=== PATIENT | male | born 1945 | race Caucasian/White ===

== ENCOUNTER → 2016-10-18 | Outpatient (CLI) | payer OTHER ==
[~2016-10-18] MED LIST: AMLO-114 PO; ASPEC325 PO; GLC/500 PO; HYDR-713 PO; LOSA1TAB PO; LPT/40 PO; METO25TA56 PO; PRLSR20 PO; SPIR25TA PO
[2016-10-18 13:42] LABS: RATIO 47.8 mcg/mg (0-30.0)
[2016-10-18 13:45] LABS: ALT/SGPT 62 U/L (12-78); AST/SGOT 38 U/L (15-37); BLOOD UREA NITROGEN 12 mg/dl (7-18); BUN/CREATININE RATIO 12.8 (10-20); CALCIUM 9.3 mg/dl (8.5-10.1); CARBON DIOXIDE 27 mmol/L (21-32); CHLORIDE 102 mmol/L (98-107); CREATININE 0.91 mg/dl (0.60-1.40); GLUCOSE 204 mg/dl (70-99); POTASSIUM 4.3 mmol/L (3.5-5.1); SODIUM 136 mmol/L (136-145)
[2016-10-18 13:47] LABS: ALB/GLOB RATIO 0.9 (0.9-2); ALKALINE PHOSPHATASE 92 U/L (45-117); CHOLESTEROL 123 mg/dl (0-200); CHOLESTEROL/HDL RATIO 2.7; HDL CHOLESTEROL 46 mg/dl; LDL CHOLESTEROL CALCULATED 35 mg/dl; TRIGLYCERIDES 211 mg/dl (0-150); VERY LOW DENSITY LIPOPROT CALC 42 mg/dl
[2016-10-18 13:56] LABS: ESTIMATED AVERAGE GLUCOSE 220 mg/dl; HA1C FLAG Normal (Normal)
== END | disposition home or self-care (01) ==
LOC: C.LABBFT 07:57
PROVIDERS: ATTEND Nurse Practitioner
DX: E11.9 Type 2 diabetes mellitus without complications (principal); I25.10 Atherosclerotic heart disease of native coronary artery without angina pectoris

== ENCOUNTER → 2016-11-14 | Outpatient (CLI) | payer OTHER ==
--- NOTE | 2016-11-15 06:09 | PAP/PSG TECHNICIAN REPORT ---
[facility] Retail Buyer Polysomnogram Report Study name: None Report date: 11/15/2016 Study date: 11/14/2016 Referring Physician: Jorje Chou M.D. Name: WATSON IVANNA Dio Interpreting Physician: Jorje Chou M.D. Date of : 1945 Retail Buyer: Roro Saeed RPSGT. Sex: Male Age: 71 StudyType: PSG Weight: 256 lbs Height: 71 years, Height 5' 8" BMI: 38.92 Medications: Aspirin 81 mg, Metoprolol 25 mg, Triamcinolone 0.5%, Atorvastatin Calcium 40 mg, Omeprazole 20 mg, Amlodipine 10 mg, Losartan 25 mg, Spironolactone 25 mg, Metformin 1000 mg, Tresiba Patient History 71 yr. old male here for a diagnostic sleep study. Patient complains of being restless and sleeping for three hours and then does a lot of tossing and turning. 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 Patients [place] Sleepiness Scale Score is 11/24. Parameters Monitored NPSG: E1-M2, E2-M1, Fp1-M2, Fp2-M1, F3-M2, F4-M2, F4-M1, C3-M2, C4-M2, C4-M1, O1-M2, O2-M2, O2-M1, T3-M2, T4-M1, P3-M2, P4-M1, CHIN1, CHIN2, HR, EKG, Legs, PFLOW, SNOR, FLOW, CFLOW, Tidal Volume, THOR, ABDO, SpO2, PLTH, CPRESS, ETCO2 Wave, ETCO2, pH Sleep Architecture Sleep Stages Time at Lights Off 8:29:26 PM STAGES Time (min.) TST (%) Time at Lights On 5:36:26 AM Wake 120.0 -- Total Recording Time (TRT) 547.00 min. N1 63.5 15 Total Sleep Period (TSP) 514.0 min. N2 238.5 56 Total Sleep Time (TST) 427.0min. N3 73.5 17 Awake Time 120.0 min. REM 51.5 12 Wake after Sleep Onset 90.0 min. Sleep Efficiency (SE) 78 % Sleep Onset Latency (ERICA) 30.0 min. Number of Stage 1 Shifts None Awakenings 34 Stage Changes 148 Number of REM periods 6 REM 51.5 12 REM Latency 139.5 min. NREM 375.5 88 Body Position Analysis Supine Right Left Side Prone Vertical Total Sleep Time (min.) 76.2 359.1 30.1 389.19 0.0 0.0 Total Sleep Time (%) 9% 84% 7% 91 0% N/A% Total Sleep Time REM (min.) 1.9 49.6 0.0 None 0.0 0.0 Total Sleep Time NREM (min.) 35.9 309.5 30.1 None 0.0 0.0 Intermittent Wake (min.) 38.4 52.5 29.2 None 0.0 0.0 Total Sleep Period (%) 10% None None None None None Arousals Myoclonus (PLM) * Events Count Index Events Count Index Spontaneous 6 1 Events Awake (PLMW) 123 61.5 Respiratory 16 3.2 Events Asleep w/ Arousal (PLMA) 12 1.7 PLM 12 2 Events Asleep w/o Arousal (PLMS) 219 30.8 Snoring 19 3 Total Asleep 231 32.5 Total 53 7 Total 354 39 Respiratory Analysis * CA OA MA CH H RERA Total Count 0 48 2 0 168 0 218 Index 0.0 6.7 0.3 0 23.6 0 30.6 Mean Duration 0.0 17.9 19.7 0.00 23.4 0.0 22.2 Longest Duration 0.0 28.2 24.4 0.00 24.4 0.0 87.6 Respiratory Event Summary Total Supine ~Supine Right Left Prone REM NREM Apneas Count 50 48 2 0 2 N/A 0 50 Index 7.0 76 0 0.0 4.0 N/A 0 8 Hypopneas (4% Desat) Count 168 8 160 137 23 N/A 27 141 Index 23.6 12.7 25 22.9 45.9 N/A 31.5 22.5 Apneas & All Hypopneas Count 218 56 162 137 25 N/A 27 191 Index 30.6 89 25 23 50 N/A 31.5 30.5 Respiratory Events (Reclamation Kettle Tender+All Hyp+RERA) Count 218 56 162 137 25 N/A 27 191 Index 30.6 89 25 22.9 49.9 N/A 31.5 30.5 Respiratory Related Arousal Count 16 56 10 8 2 N/A 0 23 Index 3.2 21 2 1 4 N/A 0 4 Snoring Analysis Supine Right Left Prone REM NREM Total Snore duration 39.8 min Snores count 137 1,861 121 N/A 256 1,863 2,119 Snore mean duration 1.1 Sec Snores index 217 311 241 N/A 298.3 297.7 297.8 TST with snoring (%) 9.3% Desaturation Event Summary: Minimum %SpO2 Event Count Mean/Min/Max Duration(sec.) Desaturation Index % Time In Bed > 90 254 30.6 / 7.5 / 60.0 54.4 51.6 86 - 90 47 28.1 / 5.5 / 58.8 11.4 45.5 81 - 85 3 23.1 / 17.3 / 26.5 11.5 2.9 76 - 80 0 N/A 0.0 0.0 71 - 75 0 N/A 0.0 0.0 66 - 70 0 N/A 0.0 0.0 61 - 65 0 N/A 0.0 0.0 56 - 60 0 N/A 0.0 0.0 51 - 55 0 N/A 0.0 0.0 < 50 0 N/A 0.0 0.0 Total REM NREM Awake <50% 0.0 min. 0.0 min. 0.0 min. 0.0 min. 51 - 60% 0.0 min. 0.0 min. 0.0 min. 0.0 min. 61 - 70% 0.0 min. 0.0 min. 0.0 min. 0.0 min. 71 - 80% 0.2 min. 0.2 min. 0.0 min. 0.0 min. 81 - 90% 262.4 min. 29.4 min. 204.4 min. 28.6 min. 91 - 100% 280.0 min. 22.0 min. 171.1 min. 87.0 min. Average 91 89 90 92 Minimum SpO2 80 80 81 82 Desaturation Event Index 29.2 18.6 31.5 29.5 # Desat. Events below 89% 138 8 106 24 Time(%) with Saturation below 89% 16.7 4.2 10.9 1.5 Time(min.) with Saturation below 89% 90.7 23.0 59.3 8.4 Time (mins) REM (mins) NREM (mins) % of TST SpO2 Below 90% 197 14 N183 34.6 SpO2 Below 88% 61 0 0 9 Heart Rate Analysis Min (bpm) Max (bpm) Average (bpm) Awake 67 113 77 NREM 67 94 78 REM 67 91 79 Overall 67 94 78 Supplemental O2 Values Minimum O2 level: None Value Start Time End Time Retail Buyer Comments Mr. Corona slept in the right, left, and supine positions. Cardiac arrhythmia noted. Occasional PLMs noted. No bruxism noted. Snoring was noted and scored as a 2 on a scale of 0 through 5. (0=no snoring, 5=snoring loud enough to be heard through a closed door or down the [address]) Mr. Corona awoke to use the restroom once during the night. Mr. Corona stated, I slept better than I do at home. The final report will be interpreted and signed by a sleep physician. The completed physician report will then be placed in the patient medical record. Therapy (cm H2O) 0 TIB (min.) 547.0 TST (min.) 427.0 Sleep Onset (min.) 30.0 REM Onset From Sleep (min.) 139.5 Sleep Efficiency % 78 Wakefulness (%) 22 Wakefulness (min.) 120.0 NREM 1 (%) 15 NREM 1 (min.) 63.5 NREM 2 (%) 56 NREM 2 (min.) 238.5 NREM 3 (%) 17 NREM 3 (min.) 73.5 REM (%) 12 REM (min.) 51.5 # Arousals 53 Arousal Index 7 # Snore 2,119 Snore Index 297.8 AHI 30.6 AHI Supine 89 AHI Non-Supine 25 NREM AHI 30.5 REM AHI 31.5 RDI 30.6 # Obstructive Apnea 48 # Central Apnea 0 # Mixed Apnea 2 # Hypopneas 168 RERAs 0 Total Respiratory Events 234 Time Below SpO2 89% (min.) 82.3 Mean NREM SpO2 (%) 90 Mean REM SpO2 (%) 89 Mean Sleep SpO2 (%) 90 Min NREM SpO2 (%) 81 Min REM SpO2 (%) 80 Position Supine (min.) 76.2 Position Non-supine (min.) 389.2 LM Index Sleep 32.5 LM Index NREM 34.2 LM Index REM 19.8 Mean Heart Rate (bpm) 78 Min Heart Rate (bpm) 67
--- NOTE | 2016-11-16 10:34 | POLYSOMNOGRAPH REPORT ---
CLINICAL DATA: A 71-year-old male with BMI of 38.92, referred by Dr. Wynne and myself for a sleep study. He has restless sleep, sleeping for 3 hours, then awakening and tossing and turning. His [place] Sleepiness score is elevated at 11/24. SLEEP ARCHITECTURE: Total sleep period was 514 minutes. Total sleep time was 427 minutes divided between 375.5 minutes of non-REM sleep and 51.5 minutes of REM sleep. Sleep onset latency was delayed at 30 minutes. REM latency was slightly delayed at 139.5 minutes. Sleep efficiency was reduced at 78%. Wake after sleep onset was 90 minutes. Sleep consisted of stage N1 15%, stage N2 56%, stage N3 17% and REM 12%. AROUSAL DATA: 53 arousals were recorded for an index of 7 per hour. PERIODIC LIMB MOVEMENT DATA: 231 limb movements during sleep were noted for an index of 32.5 per hour with arousal index of 1.7 per hour. RESPIRATORY DATA: Severe sleep apnea was documented. The AHI was 30.6. There were 48 obstructive and 2 mixed apneic episodes. The longest duration of apnea was 28.2 seconds. There were 168 hypopneic episodes. The mean duration of hypopnea was 22.4 seconds. OXIMETRY DATA: Nocturnal hypoxemia was seen. Oxygen jessica was 80% during REM. Mean saturation was 91%. Time below 88% was 61 minutes. ELECTROCARDIOGRAM: Heart rates ranged from 67-94 beats per minute. Occasional PACs were noted. ELECTRO MECHANICAL ENGINEER'S COMMENTS: The patient slept in the right, left and supine position. No bruxism was noted. Snoring was mild, rated 2 on a scale of 1-5. IMPRESSION: Severe sleep apnea/hypopnea with nocturnal hypoxemia. RECOMMENDATIONS: The patient may benefit from a repeat sleep study with CPAP or use of auto-CPAP. Clinical correlation is needed. [facility] MED[facility] CENTEREdwige
== END | disposition home or self-care (01) ==
LOC: C.NEUR 20:00
PROVIDERS: ATTEND Internal Medicine Endocrinology, Diabetes & Metabolism
DX: G47.30 Sleep apnea, unspecified (principal); I25.10 Atherosclerotic heart disease of native coronary artery without angina pectoris

== ENCOUNTER → 2016-12-12 | Outpatient (CLI) | payer OTHER ==
--- NOTE | 2016-12-13 06:28 | PAP/PSG TECHNICIAN REPORT ---
[facility] Building Wrecker Polysomnogram Report Study name: None Report date: 12/13/2016 Study date: 12/12/2016 Referring Physician: Jorje Chou M.D. Name: WATSON IVANNA Dio Interpreting Physician: Jorje Chou M.D. Date of : 1945 Building Wrecker: Celeste Guajardo RPSGT. Sex: Male Age: 71 Study Type: PSG PAP Weight: 256 lbs Height: 71 years, Height 5' 8" BMI: 38.92 Medications: Aspirin 81 mg, Metoprolol 25 mg, Triamcinolone 0.5%, Atorvastatin Calcium 40 mg, Omeprazole 20 mg, Amlodipine 10 mg, Losartan 25 mg, Spironolactone 25 mg, Metformin 1000 mg, Tresiba Patient History 71 yr-old male here for a new CPAP treatment study. He was found to be positive for JULIOCESAR with and AHI of 30.6. He chose a Mirage FX Soft edge nasal mask size standard from [email or web address]. The test was started on room air and 4 CMH2O. ETCO2 testing was not utilized during this study. Room 1 Parameters Monitored NPSG: E1-M2, E2-M1, Fp1-M2, Fp2-M1, F3-M2, F4-M2, F4-M1, C3-M2, C4-M2, C4-M1, O1-M2, O2-M2, O2-M1, T3-M2, T4-M1, P3-M2, P4-M1, CHIN1, CHIN2, HR, EKG, Legs, PFLOW, SNOR, FLOW, CFLOW, Tidal Volume, THOR, ABDO, SpO2, PLTH, CPRESS, ETCO2 Wave, ETCO2, pH Sleep Architecture Sleep Stages Time at Lights Off 10:01:34 PM STAGES Time (min.) TST (%) Time at Lights On 5:29:04 AM Wake 125.5 -- Total Recording Time (TRT) 447.50 min. N1 24.5 8 Total Sleep Period (TSP) 408.0 min. N2 232.0 72 Total Sleep Time (TST) 322.0min. N3 8.5 3 Awake Time 125.5 min. REM 57.0 18 Wake after Sleep Onset 86.0 min. Sleep Efficiency (SE) 72 % Sleep Onset Latency (ERICA) 39.5 min. Number of Stage 1 Shifts None Awakenings 17 Stage Changes 71 Number of REM periods 2 REM 57.0 18 REM Latency 153.5 min. NREM 265.0 82 Body Position Analysis Supine Right Left Side Prone Vertical Total Sleep Time (min.) 86.0 256.9 61.5 318.36 0.0 0.0 Total Sleep Time (%) 1% 80% 19% 99 0% N/A% Total Sleep Time REM (min.) 0.0 40.5 16.5 None 0.0 0.0 Total Sleep Time NREM (min.) 3.6 216.4 45.0 None 0.0 0.0 Intermittent Wake (min.) 82.3 37.5 5.6 None 0.0 0.0 Total Sleep Period (%) 12% None None None None None Arousals Myoclonus (PLM) * Events Count Index Events Count Index Spontaneous 21 4 Events Awake (PLMW) 71 33.9 Respiratory 2 0.2 Events Asleep w/ Arousal (PLMA) 5 0.9 PLM 5 1 Events Asleep w/o Arousal (PLMS) 110 20.5 Snoring 5 1 Total Asleep 115 21.4 Total 33 6 Total 186 25 Respiratory Analysis * CA OA MA CH H RERA Total Count 1 0 0 0 32 0 33 Index 0.2 0.0 0.0 0 6.0 0 6.1 Mean Duration 10.7 0.0 0.0 0.00 18.1 0.0 17.9 Longest Duration 10.7 0.0 0.0 0.00 0.0 0.0 31.0 Respiratory Event Summary Total Supine ~Supine Right Left Prone REM NREM Apneas Count 1 1 0 0 0 N/A 0 1 Index 0.2 16 0 0.0 0.0 N/A 0 0 Hypopneas (4% Desat) Count 32 2 30 19 11 N/A 10 22 Index 6.0 33.0 6 4.4 10.7 N/A 10.5 5.0 Apneas & All Hypopneas Count 33 3 30 19 11 N/A 10 23 Index 6.1 49 6 4 11 N/A 10.5 5.2 Respiratory Events (Pilot Plant Supervisor+All Hyp+RERA) Count 33 3 30 19 11 N/A 10 23 Index 6.1 49 6 4.4 10.7 N/A 10.5 5.2 Respiratory Related Arousal Count 2 3 1 1 0 N/A 0 1 Index 0.2 0 0 0 0 N/A 0 0 Snoring Analysis Supine Right Left Prone REM NREM Total Snore duration 3.7 min Snores count 16 73 50 N/A 38 101 139 Snore mean duration 1.6 Sec Snores index 264 17 49 N/A 40.0 22.9 25.9 TST with snoring (%) 1.1% Desaturation Event Summary: Minimum %SpO2 Event Count Mean/Min/Max Duration(sec.) Desaturation Index % Time In Bed > 90 133 25.9 / 6.8 / 60.0 56.3 32.1 86 - 90 52 29.1 / 6.8 / 60.0 10.7 65.8 81 - 85 2 17.9 / 14.8 / 21.0 13.1 2.1 76 - 80 0 N/A 0.0 0.0 71 - 75 0 N/A 0.0 0.0 66 - 70 0 N/A 0.0 0.0 61 - 65 0 N/A 0.0 0.0 56 - 60 0 N/A 0.0 0.0 51 - 55 0 N/A 0.0 0.0 < 50 0 N/A 0.0 0.0 Total REM NREM Awake <50% 0.0 min. 0.0 min. 0.0 min. 0.0 min. 51 - 60% 0.0 min. 0.0 min. 0.0 min. 0.0 min. 61 - 70% 0.0 min. 0.0 min. 0.0 min. 0.0 min. 71 - 80% 0.0 min. 0.0 min. 0.0 min. 0.0 min. 81 - 90% 299.8 min. 47.3 min. 216.7 min. 35.8 min. 91 - 100% 141.8 min. 9.7 min. 48.3 min. 83.8 min. Average 90 88 89 91 Minimum SpO2 81 81 83 81 Desaturation Event Index 19.7 32.6 8.4 38.7 # Desat. Events below 89% 110 30 31 49 Time(%) with Saturation below 89% 27.5 7.0 17.7 2.9 Time(min.) with Saturation below 89% 121.6 30.8 78.1 12.7 Time (mins) REM (mins) NREM (mins) % of TST SpO2 Below 90% 68 31 N37 57.4 SpO2 Below 88% 31 0 0 16 Heart Rate Analysis Min (bpm) Max (bpm) Average (bpm) Awake 46 95 79 NREM 63 96 79 REM 66 89 78 Overall 63 96 79 Supplemental O2 Values Minimum O2 level: None Value Start Time End Time Building Wrecker Comments Mr. Corona slept in the right, left, and supine positions. Cardiac arrhythmias were noted (please refer to the printouts). PLMs were noted. No bruxism noted. CPAP was initiated at +4 CMH2O and up-titrated to a level of +9 CMH2O, Cflex 2. A Mirage FX Soft edge nasal mask size standard from [email or web address] was used during titration. He awoke to use the restroom one time during the night. Mr. Corona stated that he slept somewhat poorly. The final report will be interpreted and signed by a sleep physician. The completed physician report will then be placed in the patient medical record. Therapy Event: Therapy (cm H20) 4 6 7 9 Total Time at Pressure (min.) 135.8 67.7 183.6 60.4 TST at Pressure (min.) 87.3 60.2 140.6 33.9 # Periods 1 1 1 1 Sleep Onset (min.) 39.5 0.0 0.0 0.0 REM Onset (min.) N/A 57.2 0.0 0.0 Sleep Efficiency % 64 88 76 56 Wakefulness (%) 35.7 11.1 23.4 43.9 Wakefulness (min.) 48.5 7.5 43.0 26.5 NREM 1 (%) 4.8 4.4 4.4 11.6 NREM 1 (min.) 6.5 3.0 8.0 7.0 NREM 2 (%) 53.6 69.0 48.2 39.7 NREM 2 (min.) 72.8 46.7 88.5 24.0 NREM 3 (%) 5.9 0.0 0.3 0.0 NREM 3 (min.) 8.0 0.0 0.5 0.0 REM (%) 0.0 15.5 23.7 4.8 REM (min.) 0.0 10.5 43.6 2.9 # Arousals 6 3 15 9 Arousal Index 4.1 3.0 6.4 15.9 # Snore 23 14 77 25 Snore Index 15.8 13.9 32.9 44.2 AHI 6.2 6.0 5.5 8.8 AHI Supine N/A N/A 0.0 51.4 AHI Non-Supine 6.2 6.0 5.6 3.9 NREM AHI 6.2 4.8 3.7 7.7 REM AHI N/A 11.4 9.6 20.7 RDI 6.2 6.0 5.5 8.8 # Obstructive 0 0 0 0 # Central Ap 0 0 0 1 # Mixed 0 0 0 0 # Hypopneas 9 6 13 4 RERAS 0 0 0 0 Total Respiratory Events 9 6 13 5 Time Below SpO2 89.00% (min.) 41.4 27.3 38.0 2.2 Mean NREM SpO2 (%) 89 89 90 91 Mean REM SpO2 (%) N/A 87 88 89 Mean Sleep SpO2 (%) 89 88 89 90 Min NREM SpO2 (%) 85 86 84 83 Min REM SpO2 (%) N/A 81 81 84 Position Supine (min.) 0.0 0.0 0.1 3.5 Position Non-supine (min.) 87.3 60.2 140.4 30.4 LM Index Sleep 4.8 57.8 18.4 12.4 LM Index NREM 4.8 67.6 12.4 5.8 LM Index REM N/A 11.4 31.7 82.7 Mean Heart Rate (bpm) 81 78 79 77 Min Heart Rate (bpm) 74 63 66 70
--- NOTE | 2016-12-14 15:10 | POLYSOMNOGRAPH REPORT ---
CLINICAL DATA: A 71-year-old male with BMI of 38.9 referred by myself and Dr. Rondon for a CPAP study. He recently had a sleep study which showed severe sleep apnea with an AHI of 30.6. SLEEP ARCHITECTURE: Total sleep period was 408 minutes. Total sleep time was 322 minutes divided between 265 minutes of non-REM sleep and 57 minutes of REM sleep. Sleep onset latency was delayed at 39.5 minutes. REM latency was slightly delayed at 152.5 minutes. Sleep efficiency was reduced at 72%. Wake after sleep onset was 86 minutes. Sleep consisted of stage N1 8%, stage N2 72%, stage N3 3%, and REM 18%. AROUSAL DATA: 33 arousals were recorded for an index of 6 per hour. PERIODIC LIMB MOVEMENTS DATA: 115 limb movements during sleep were noted for an index of 12.4 per hour with arousal index of 0.9 per hour. RESPIRATORY DATA: The AHI was 6.1. There was 1 central apneic episode, 10.7 seconds in duration. There were 32 hypopneic episodes with the mean duration of 18.1 seconds. OXIMETRY DATA: Mild nocturnal hypoxemia was seen. Oxygen jessica was 81% during REM. The mean saturation was 90%. Time below 88% was 31 minutes. EKG: Heart rates ranged from 63-96 beats per minute. PACs were noted. SHRIMPING BOAT CAPTAIN'S COMMENTS AND TREATMENT SUMMARY: The patient slept in the right, left, and supine positions. He used a Mirage FX soft edge nasal mask size standard. He was titrated up to 9 cm of water pressure. At this final pressure setting, he slept for 34 minutes with an AHI of 8. IMPRESSION: Severe sleep apnea corrected with CPAP 9 cm of water pressure, C-Flex setting of 2 with a residual apnea-hypopnea index of 8 and correction of nocturnal hypoxemia. RECOMMENDATIONS: The patient should be started on the above noted treatment regimen and seen back in followup within 90 days to document efficacy and compliance. BERNIE
== END | disposition home or self-care (01) ==
LOC: C.NEUR 20:00
PROVIDERS: ATTEND Physician Assistant Medical
DX: G47.33 Obstructive sleep apnea (adult) (pediatric) (principal); E66.9 Obesity, unspecified; R13.10 Dysphagia, unspecified; E11.65 Type 2 diabetes mellitus with hyperglycemia; Z79.4 Long term (current) use of insulin

== ENCOUNTER → 2017-04-18 | Outpatient (CLI) | payer OTHER ==
[2017-04-18 13:15] LABS: HEMOGLOBIN A1C 7.2 % (4.5-5.6)
== END | disposition home or self-care (01) ==
LOC: C.LABBFT 07:05
PROVIDERS: ATTEND Internal Medicine Endocrinology, Diabetes & Metabolism
DX: E11.65 Type 2 diabetes mellitus with hyperglycemia (principal); Z79.4 Long term (current) use of insulin

== ENCOUNTER 2022-10-23 18:24 | Inpatient (IN) ==
--- NOTE | 2022-10-23 19:12 | Emergency Department Note ---
History of Present Illness General Chief complaint: Fall Stated complaint: FALL, NAUSEA, BUTTOCKS PAIN Time Seen by Provider: 10/23/22 18:51 History of Present Illness Provider complaint: Fall abdominal pain difficulty breathing Onset (ago): day(s) 2 Maximum Pain Intensity: 9 67-year-old male presents emergency department with friend for fall. Patient's friend reports that the patient fell on Sunday and was unable to get up. She states the patient is been more confused. She states the patient has not been eating. Patient reports abdominal pain. Mild difficulty breathing. No chest pain. Friend states that the patient is supposed to have surgery at [facility] for "fluid on his brain". Home Medications Medication Instructions Recorded Confirmed Type cholecalciferol (vitamin D3) 125 125 mcg PO DAILY 07/29/19 10/23/22 History mcg (5,000 unit) capsule OneTouch Ultra Blue Test Strip #200 ea 07/26/20 10/23/22 Rx (blood sugar diagnostic) omeprazole 20 mg capsule,delayed 20 mg PO DAILY #30 caps 04/03/22 10/23/22 Rx release mecobalamin (vitamin B12) 1,000 1,000 mcg PO DAILY 05/01/22 10/23/22 History mcg chewable tablet amlodipine 10 mg tablet 10 mg PO DAILY #90 tabs 06/26/22 10/23/22 Rx aspirin 81 mg tablet,delayed 162 mg PO QAM #180 tabs 06/26/22 10/23/22 Rx release atorvastatin 80 mg tablet 80 mg PO QPM #90 tabs 06/26/22 10/23/22 Rx dulaglutide 3 mg/0.5 mL 3 mg (0.5 mL) subcut Q7D #2 mL 06/26/22 10/23/22 Rx subcutaneous pen injector losartan 25 mg tablet 12.5 mg PO DAILY #90 tabs 06/26/22 10/23/22 Rx metformin 1,000 mg tablet 1,000 mg PO BID #180 tabs 06/26/22 10/23/22 Rx metoprolol tartrate 25 mg tablet 25 mg PO BID #180 tabs 06/26/22 10/23/22 Rx pen needle, diabetic 32 gauge x #90 ea 06/26/22 10/23/22 Rx 5/32" (BD Ultra-Fine Aimee Pen Needle) spironolactone 25 mg tablet 25 mg PO DAILY #90 tabs 06/26/22 10/23/22 Rx solifenacin 10 mg tablet (Vesicare) 10 mg PO DAILY #30 tabs 06/30/22 10/23/22 Rx lorazepam 0.5 mg tablet 0.5 mg PO .COMPLEX #2 tabs 07/04/22 10/23/22 Rx insulin glargine U-300 conc 300 30 unit (0.1 mL) subcut HS #12 mL 08/30/22 10/23/22 Rx unit/mL (3 mL) subcutaneous pen (Toujeo Max U-300 SoloStar) Allergies Allergy/AdvReac Type Severity Reaction Status Date / Time morphine AdvReac Unknown nasty Verified 06/09/22 10:43 Past Med/Surg History Medical History (Updated 10/24/22 @ 00:59 by Valentin Bailey MD) History of pancreatitis Hx of carpal tunnel syndrome Morbid obesity Nephrolithiasis T2DM (type 2 diabetes mellitus) Surgical History H/O lithotripsy b/l History of laparoscopic cholecystectomy [place] [facility] [place] History Mother Hypertension Father Hypertension Cardiac disorder Sudden Sister Cancer Social History Smoking Status: Former smoker Age Started Using Tobacco: 17; Age Quit Using Tobacco: 54; packs per day: 1; Cigarettes Per Day: 1; Second Hand Exposure: No; Do You Dip or Chew Tobacco: No; Hx Alcohol Use: No Hx Substance Use: No marital status: current occupational status: 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 Feels Safe at Home: Yes Diet: regular caffeine: Yes Seatbelt Use: sometimes Sunscreen Use: No Assistive Devices: Denture - Upper and Denture - Lower Physical Exam Vital Signs Vital Signs - 24 hr 10/23/22 18:38 10/23/22 19:30 10/23/22 20:30 Temperature 36.6 C Temperature Source Temporal Artery Scan Pulse Rate 94 H 88 90 Pulse Rate from SpO2 Sensor 88 90 Respiratory Rate 20 24 20 Respiratory Effort / Characteristics Non-Labored Respiratory Depth Normal Blood Pressure 146/88 H 136/80 147/81 H Blood Pressure Mean 107 98 103 Pulse Oximetry 88 L 92 94 Oxygen Delivery Method Room Air Nasal Cannula Nasal Cannula Oxygen Flow Rate 1 1 Sepsis Recent Fever Within 48 Hours No Sepsis New/Unexplained Change in Mental Status No Sepsis Action Taken by Nursing No Action Required 10/23/22 18:47 10/23/22 21:01 10/23/22 21:30 Temperature Temperature Source Pulse Rate 88 92 H 89 Pulse Rate from SpO2 Sensor 91 H 89 Respiratory Rate 14 17 Respiratory Effort / Characteristics Respiratory Depth Blood Pressure 147/81 H 135/76 Blood Pressure Mean 103 95 Pulse Oximetry 93 91 Oxygen Delivery Method Room Air Room Air Oxygen Flow Rate Sepsis Recent Fever Within 48 Hours Sepsis New/Unexplained Change in Mental Status Sepsis Action Taken by Nursing Physical Exam HENT: Exam performed. - Head: Normocephalic and atraumatic. - Right Ear: External ear normal. No mastoid erythema - Left Ear: External ear normal. No mastoid erythema - Mouth/Throat: The oropharynx is clear and moist. No trismus in the jaw. No dental abscesses or uvula swelling. No oropharyngeal exudate or tonsillar absces ses. EYES: Conjunctivae and EOM are normal. Pupils are equal, round, and reactive to light. Right eye exhibits no discharge. Left eye exhibits no discharge. No scleral icterus. NECK: Normal range of motion. Neck supple. No JVD present. No spinous process tenderness present. CV: Normal rate, regular rhythm, normal heart sounds and intact distal pulses. There is no peripheral edema. Palpable radial pulses bue. PULM/CHEST: Effort normal and breath sounds normal. No respiratory distress. No stridor. He has no wheezes. He has no rales. - Chest Wall: He exhibits no tenderness. No crepitus bilaterally. ABD: The abdomen is soft and distended. There is no tenderness. There is no rebound, no guarding. MUSC/SKEL: Pelvis stable NEURO: He is alert and oriented to person, place, and time. He has normal strength. No cranial nerve deficit or sensory deficit. Coordination and gait normal. GCS eye subscore is 4. GCS verbal subscore is 5. GCS motor subscore is 6. Cerebellar tests wnl. Course Course 185: The patient was evaluated in room C1. A complete history and physical exam was performed Cardiac monitoring: An order was placed for continuous cardiac monitoring. The monitor shows a rate of 90 with sinus rhythm interpreted by Patient hypoxic on room air. Supplemental oxygen was applied via nasal cannula 1 L which improved the patient's oxygen saturation. 1919: No pneumothorax on chest x-ray viewed by . 0052: Vital signs stable on supplemental oxygen. Imaging shows no acute traumatic injury. Stable hydrocephalus. Labs are unremarkable with exception of a low magnesium. Magnesium repletion started in the emergency department. [facility]. Administered Medications Magnesium Sulfate/Dextrose (Magnesium Sulfate / D5w) 1 gm in 100 mls @ 50 mls/hr IV Q2H [facility] Stop: 10/24/22 05:59 Last Admin: 10/23/22 23:43 Dose: 50 mls/hr Documented By: SUNITHA Discontinued Medications Magnesium Sulfate/Dextrose (Magnesium Sulfate / D5w) 1 gm in 100 mls @ 100 m ls/hr IV Q1H [facility] Stop: 10/23/22 22:40 Last Infusion: 10/23/22 23:03 Dose: 0 mls/hr Documented By: Admin: 10/23/22 21:59 Dose: 100 mls/hr Documented By: Infusion: 10/23/22 21:46 Dose: 100 mls/hr Documented By: Admin: 10/23/22 20:46 Dose: 100 mls/hr Documented By: SUNITHA Ioversol (Optiray 320 100ml) 89 ml IV ONCE ONE Stop: 10/23/22 20:09 Last Admin: 10/23/22 20:08 Dose: 89 ml Documented By: CAMILLA Critical Care Time Critical Care Time: Yes Total Critical Care Time: 67 I have personally spent greater than 67 minutes of critical care time in the direct management of this patient. This includes bedside care, interpretation of diagnostic studies, and testing, discussion with consultants, patient, and family members, and other required patient management activities. This 67 minutes is in excess of all separately billable procedures. Medical Decision Making Medical Records Attestation: I reviewed the patient's medical records. External medical records were obtained from case loader operator Prasanna. According to the neurology note from [facility] the patient has a history of poor balance and wets himself without knowing, this is from May 2022. 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 Laboratory Data Attestation: I reviewed the patient's lab results. 10/23/22 19:25 10/23/22 19:25 Lab Results 10/23/22 10/23/22 10/23/22 Range/Units 19:05 19:25 19:25 WBC 9.54 (4.8-10.8) K/ul RBC 4.05 L (4.70-6.10) M/uL Hgb 12.5 L (14.0-18.0) g/dl POC Hgb (14.0-18.0) g/dl Hct 36.4 L (42.0-52.0) % POC Hct (42-52) % MCV 89.9 (80.0-100.0) fL MCH 30.9 (25.0-34.0) pg MCHC 34.3 (32.0-36.0) g/dL RDW Std Deviation 44.6 (36.4-46.3) fL RDW Coeff of Payton 13.7 (11.5-14.5) % Plt Count 183 (130-400) K/uL MPV 9.5 (9.4-12.4) fL Immature Gran % (Auto) 0.3 % Neut % (Auto) 80.0 % Lymph % (Auto) 12.1 % Gillespie % (Auto) 7.0 % Eos % (Auto) 0.4 % Baso % (Auto) 0.2 % Neut # (Auto) 7.63 H (1.40-6.50) K/uL Lymph # (Auto) 1.15 L (1.20-3.40) K/uL Gillespie # (Auto) 0.67 H (0.11-0.59) K/uL Eos # (Auto) 0.04 (0.00-0.50) K/uL Baso # (Auto) 0.02 (0.00-0.20) K/uL Immature Gran # (Auto) 0.03 (0.01-0.20) K/uL PT 11.6 (9.0-12.0) Seconds INR 1.1 (0.9-1.1) APTT 32.5 H (21.0-31.0) Seconds PTT Ratio 1.2 VBG pH (7.36-7.41) VBG pCO2 (38-50) mmHg VBG pO2 mmHg VBG HCO3 mmol/L VBG O2 Saturation % VBG Base Excess mEq/L POC Sodium (135-144) mmol/L Sodium (136-145) mmol/L POC Potassium (3.3-5.0) mmol/L Potassium (3.5-5.1) mmol/L POC Chloride (101-112) mmol/L Chloride (98-107) mmol/L Carbon Dioxide (21-32) mmol/L POC Total CO2 (24-31) mmol/L Anion Gap (3-11) POC Anion Gap (16-25) mmol/L POC BUN (7-18) mg/dl BUN (6-23) mg/dl Creatinine (0.6-1.4) mg/dl POC Creatinine (0.6-1.3) mg/dl Est Cr Clr Drug Dosing ml/min Est GFR ( Amer) ml/min Est GFR (Non-Af Amer) ml/min BUN/Creatinine Ratio (10-20) Glucose (70-99(Fasting)) mg/dl POC Glucose 105 H (70-99) mg/dl POC Glucose (other) (70-99) mg/dl Calcium (8.6-10.3) mg/dl POC Ioniz Calcium [place] (1.12-1.32) mmol/l Magnesium (1.7-2.4) mg/dl Total Bilirubin (0.2-1.0) mg/dl Direct Bilirubin (0-0.2) mg/dl AST (13-39) U/L ALT (7-52) U/L Alkaline Phosphatase (34-104) U/L Total Creatine Kinase (30-223) U/L Troponin I High Sens (0-20) pg/ml B-Natriuretic Peptide (0-100) pg/ml Total Protein (6.0-8.3) gm/dl Albumin (3.4-5.0) gm/dl Lipase (11-82) U/L Ethyl Alcohol mg/dL (<10.0) mg/dl SARS-CoV-2, RNA, NAAT (NEGATIVE) 10/23/22 10/23/22 10/23/22 Range/Units 19:25 19:25 19:25 WBC (4.8-10.8) K/ul RBC (4.70-6.10) M/uL Hgb (14.0-18.0) g/dl POC Hgb (14.0-18.0) g/dl Hct (42.0-52.0) % POC Hct (42-52) % MCV (80.0-100.0) fL MCH (25.0-34.0) pg MCHC (32.0-36.0) g/dL RDW Std Deviation (36.4-46.3) fL RDW Coeff of Payton (11.5-14.5) % Plt Count (130-400) K/uL MPV (9.4-12.4) fL Immature Gran % (Auto) % Neut % (Auto) % Lymph % (Auto) % Gillespie % (Auto) % Eos % (Auto) % Baso % (Auto) % Neut # (Auto) (1.40-6.50) K/uL Lymph # (Auto) (1.20-3.40) K/uL Gillespie # (Auto) (0.11-0.59) K/uL Eos # (Auto) (0.00-0.50) K/uL Baso # (Auto) (0.00-0.20) K/uL Immature Gran # (Auto) (0.01-0.20) K/uL PT (9.0-12.0) Seconds INR (0.9-1.1) APTT (21.0-31.0) Seconds PTT Ratio VBG pH 7.42 H (7.36-7.41) VBG pCO2 36 L (38-50) mmHg VBG pO2 60 mmHg VBG HCO3 23 mmol/L VBG O2 Saturation 89.2 % VBG Base Excess -0.7 mEq/L POC Sodium (135-144) mmol/L Sodium 136 (136-145) mmol/L POC Potassium (3.3-5.0) mmol/L Potassium 3.7 (3.5-5.1) mmol/L POC Chloride (101-112) mmol/L Chloride 103 (98-107) mmol/L Carbon Dioxide 22 (21-32) mmol/L POC Total CO2 (24-31) mmol/L Anion Gap 11 (3-11) POC Anion Gap (16-25) mmol/L POC BUN (7-18) mg/dl BUN 19 (6-23) mg/dl Creatinine 1.05 (0.6-1.4) mg/dl POC Creatinine (0.6-1.3) mg/dl Est Cr Clr Drug Dosing 73.0 ml/min Est GFR ( Amer) 79.5 ml/min Est GFR (Non-Af Amer) 68.6 ml/min BUN/Creatinine Ratio 18.1 (10-20) Glucose 108 H (70-99(Fasting)) mg/dl POC Glucose (70-99) mg/dl POC Glucose (other) (70-99) mg/dl Calcium 9.5 (8.6-10.3) mg/dl POC Ioniz Calcium [place] (1.12-1.32) mmol/l Magnesium 0.9 L* (1.7-2.4) mg/dl Total Bilirubin 0.8 (0.2-1.0) mg/dl Direct Bilirubin 0.1 (0-0.2) mg/dl AST 14 (13-39) U/L ALT 15 (7-52) U/L Alkaline Phosphatase 94 (34-104) U/L Total Creatine Kinase 99 (30-223) U/L Troponin I High Sens 6.9 (0-20) pg/ml B-Natriuretic Peptide 38 (0-100) pg/ml Total Protein 6.6 (6.0-8.3) gm/dl Albumin 4.2 (3.4-5.0) gm/dl Lipase 16 (11-82) U/L Ethyl Alcohol mg/dL (<10.0) mg/dl SARS-CoV-2, RNA, NAAT (NEGATIVE) 10/23/22 10/23/22 10/23/22 Range/Units 19:25 19:36 19:45 WBC (4.8-10.8) K/ul RBC (4.70-6.10) M/uL Hgb (14.0-18.0) g/dl POC Hgb 12.6 L (14.0-18.0) g/dl Hct (42.0-52.0) % POC Hct 37 L (42-52) % MCV (80.0-100.0) fL MCH (25.0-34.0) pg MCHC (32.0-36.0) g/dL RDW Std Deviation (36.4-46.3) fL RDW Coeff of Payton (11.5-14.5) % Plt Count (130-400) K/uL MPV (9.4-12.4) fL Immature Gran % (Auto) % Neut % (Auto) % Lymph % (Auto) % Gillespie % (Auto) % Eos % (Auto) % Baso % (Auto) % Neut # (Auto) (1.40-6.50) K/uL Lymph # (Auto) (1.20-3.40) K/uL Gillespie # (Auto) (0.11-0.59) K/uL Eos # (Auto) (0.00-0.50) K/uL Baso # (Auto) (0.00-0.20) K/uL Immature Gran # (Auto) (0.01-0.20) K/uL PT (9.0-12.0) Seconds INR (0.9-1.1) APTT (21.0-31.0) Seconds PTT Ratio VBG pH (7.36-7.41) VBG pCO2 (38-50) mmHg VBG pO2 mmHg VBG HCO3 mmol/L VBG O2 Saturation % VBG Base Excess mEq/L POC Sodium 139 (135-144) mmol/L Sodium (136-145) mmol/L POC Potassium 3.7 (3.3-5.0) mmol/L Potassium (3.5-5.1) mmol/L POC Chloride 104 (101-112) mmol/L Chloride (98-107) mmol/L Carbon Dioxide (21-32) mmol/L POC Total CO2 23 L (24-31) mmol/L Anion Gap (3-11) POC Anion Gap 17.0 (16-25) mmol/L POC BUN 17 (7-18) mg/dl BUN (6-23) mg/dl Creatinine (0.6-1.4) mg/dl POC Creatinine 1.1 (0.6-1.3) mg/dl Est Cr Clr Drug Dosing ml/min Est GFR ( Amer) ml/min Est GFR (Non-Af Amer) ml/min BUN/Creatinine Ratio (10-20) Glucose (70-99(Fasting)) mg/dl POC Glucose (70-99) mg/dl POC Glucose (other) 107 H (70-99) mg/dl Calcium (8.6-10.3) mg/dl POC Ioniz Calcium [place] 1.17 (1.12-1.32) mmol/l Magnesium (1.7-2.4) mg/dl Total Bilirubin (0.2-1.0) mg/dl Direct Bilirubin (0-0.2) mg/dl AST (13-39) U/L ALT (7-52) U/L Alkaline Phosphatase (34-104) U/L Total Creatine Kinase Cancelled (30-223) U/L Troponin I High Sens (0-20) pg/ml B-Natriuretic Peptide (0-100) pg/ml Total Protein (6.0-8.3) gm/dl Albumin (3.4-5.0) gm/dl Lipase (11-82) U/L Ethyl Alcohol mg/dL < 10.0 (<10.0) mg/dl SARS-CoV-2, RNA, NAAT (NEGATIVE) 10/23/22 Range/Units 21:15 WBC (4.8-10.8) K/ul RBC (4.70-6.10) M/uL Hgb (14.0-18.0) g/dl POC Hgb (14.0-18.0) g/dl Hct (42.0-52.0) % POC Hct (42-52) % MCV (80.0-100.0) fL MCH (25.0-34.0) pg MCHC (32.0-36.0) g/dL RDW Std Deviation (36.4-46.3) fL RDW Coeff of Payton (11.5-14.5) % Plt Count (130-400) K/uL MPV (9.4-12.4) fL Immature Gran % (Auto) % Neut % (Auto) % Lymph % (Auto) % Gillespie % (Auto) % Eos % (Auto) % Baso % (Auto) % Neut # (Auto) (1.40-6.50) K/uL Lymph # (Auto) (1.20-3.40) K/uL Gillespie # (Auto) (0.11-0.59) K/uL Eos # (Auto) (0.00-0.50) K/uL Baso # (Auto) (0.00-0.20) K/uL Immature Gran # (Auto) (0.01-0.20) K/uL PT (9.0-12.0) Seconds INR (0.9-1.1) APTT (21.0-31.0) Seconds PTT Ratio VBG pH (7.36-7.41) VBG pCO2 (38-50) mmHg VBG pO2 mmHg VBG HCO3 mmol/L VBG O2 Saturation % VBG Base Excess mEq/L POC Sodium (135-144) mmol/L Sodium (136-145) mmol/L POC Potassium (3.3-5.0) mmol/L Potassium (3.5-5.1) mmol/L POC Chloride (101-112) mmol/L Chloride (98-107) mmol/L Carbon Dioxide (21-32) mmol/L POC Total CO2 (24-31) mmol/L Anion Gap (3-11) POC Anion Gap (16-25) mmol/L POC BUN (7-18) mg/dl BUN (6-23) mg/dl Creatinine (0.6-1.4) mg/dl POC Creatinine (0.6-1.3) mg/dl Est Cr Clr Drug Dosing ml/min Est GFR ( Amer) ml/min Est GFR (Non-Af Amer) ml/min BUN/Creatinine Ratio (10-20) Glucose (70-99(Fasting)) mg/dl POC Glucose (70-99) mg/dl POC Glucose (other) (70-99) mg/dl Calcium (8.6-10.3) mg/dl POC Ioniz Calcium [place] (1.12-1.32) mmol/l Magnesium (1.7-2.4) mg/dl Total Bilirubin (0.2-1.0) mg/dl Direct Bilirubin (0-0.2) mg/dl AST (13-39) U/L ALT (7-52) U/L Alkaline Phosphatase (34-104) U/L Total Creatine Kinase (30-223) U/L Troponin I High Sens (0-20) pg/ml B-Natriuretic Peptide (0-100) pg/ml Total Protein (6.0-8.3) gm/dl Albumin (3.4-5.0) gm/dl Lipase (11-82) U/L Ethyl Alcohol mg/dL (<10.0) mg/dl SARS-CoV-2, RNA, NAAT NEGATIVE (NEGATIVE) Imaging Data Attestation: I personally reviewed and interpreted this imaging study as follows: My Impression: No pneumothorax on chest x-ray viewed by me. Radiologist's Impression: Abdomen/Pelvis CT 10/23/22 18:58 Exam(s): CT ABDOMEN + PELVIS With Contrast IV Amt: 89ml EXAM: CT Abdomen and Pelvis With Intravenous Contrast CLINICAL HISTORY: Reason for exam: fall. TECHNIQUE: Axial computed tomography images of the abdomen and pelvis with intravenous contrast. CTDI is 26.54 mGy and DLP is 1573.33 mGy-cm. Automated exposure control was utilized for the study. A dose lowering technique was utilized adhering to the principles of ALARA. CONTRAST: Patient received 89ml of IV contrast COMPARISON: No relevant prior studies available. FINDINGS: Chest findings are reported separately. Gallbladder surgically absent. There is no significant biliary dilatation. Liver, spleen, pancreas, and adrenal glands are unremarkable. Kidneys enhance symmetrically. There is no hydronephrosis. There are small simple parapelvic cysts in the right kidney for which no further follow-up is required. There are simple parapelvic cysts in the left kidney as well as exophytic cortical cysts, the largest measuring 9.8 cm; no further follow-up is required. There are multiple nonobstructing stones in each kidney, largest in the left kidney measuring 6 mm. There is no evidence of renal injury. There is atherosclerosis without aortic aneurysm. There is no vascular injury. There is no adenopathy, free fluid, or free air. Urinary bladder and prostate are unremarkable. Appendix is visualized and appears normal. There is no evidence of small or large bowel obstruction. There is no mucosal thickening. Sigmoid diverticulosis is present, without evidence of acute diverticulitis. Bones are demineralized. There are age-related degenerative changes of the spine. There are no acute osseous findings. IMPRESSION: 1. No acute traumatic findings. 2. Nonobstructing kidney stones. No hydronephrosis. Electronically signed by: Yane Raya M.D. 10/23/22 20:[address] 10/23/22 18:59 Exam(s): CT C SPINE EXAM: CT Cervical Spine Without Intravenous Contrast CLINICAL HISTORY: Reason for exam: fall. TECHNIQUE: Axial computed tomography images of the cervical spine without intravenous contrast. CTDI is 36.67 mGy and DLP is 624.41 mGy-cm. Automated exposure control was utilized for the study. A dose lowering technique was utilized adhering to the principles of ALARA. COMPARISON: No relevant prior studies available. FINDINGS: Vertebral body height and alignment are maintained. There is cervical spine straightening. There is no acute fracture or traumatic subluxation. Bones are demineralized. Anterior ossification the cervical spine raises the possibility of diffuse idiopathic skeletal hyperostosis. Disc heights are relatively maintained for patient age. There is multilevel bilateral facet degeneration. There is lower cervical uncovertebral joint degeneration. There is no significant central spinal canal stenosis. There is mild right foraminal narrowing at C3-C4 and mild right foraminal narrowing at C6-C7. Prevertebral soft tissues appear unremarkable. IMPRESSION: Cervical spine straightening without acute osseous abnormality. Electronically signed by: Yane Raya M.D. 10/23/22 20:30 PM Chest X-Ray 10/23/22 18:59 XR chest 1V portable HISTORY: fall COMPARISON: Chest and abdominal series 05/22/2014. FINDINGS: No pneumothorax. No pleural effusions. There are poststernotomy changes. There are calcifications within the aortic knob. No focal lung consolidations to suggest pneumonia. No evidence for pulmonary edema. Bibasilar linear densities favor subsegmental atelectasis. This is similar to the prior [facility]. IMPRESSION: No significant change compared to the prior study. No acute process. ACT 112: Negative or not required by law. Electronically signed by: Franck Kilpatrick M.D. 10/23/2022 8:[address] 10/23/22 18:59 Exam(s): CT HEAD Without Contrast EXAM: CT Head Without Intravenous Contrast CLINICAL HISTORY: Reason for exam: fall. TECHNIQUE: Axial computed tomography images of the head/brain without intravenous contrast. CTDI is 25.6 mGy and DLP is 486.93 mGy-cm. Automated exposure control was utilized for the study. A dose lowering technique was utilized adhering to the principles of ALARA. COMPARISON: 08/26/18 FINDINGS: Brain: Generalized parenchymal volume loss. Chronic small vessel ischemic changes. Zazueta-white matter differentiation maintained. No acute intracranial hemorrhage, mass-effect, or edema. Ventricles: Similar ventricular enlargement, favored to reflect central greater than cortical cerebral atrophy, but clinical correlation to exclude normal pressure hydrocephalus is recommended. Bones/joints: Unremarkable. No acute fracture. Soft tissues: Unremarkable. Vasculature: Intracranial atherosclerosis. Sinuses: Unremarkable as visualized. No acute sinusitis. Mastoid air cells: Unremarkable as visualized. No mastoid effusion. Orbits: Bilateral lens replacements. IMPRESSION: 1. No acute intracranial process appeared 2. Similar ventricular enlargement, favored to reflect central greater than cortical cerebral atrophy, but clinical correlation to exclude normal pressure hydrocephalus is recommended. Electronically signed by: Yane Raya M.D. 10/23/22 20:28 PM Pelvis X-Ray 10/23/22 18:59 XR pelvis 1-2V routine CLINICAL HISTORY: fall. Pelvic pain. COMPARISON STUDY: None. FINDINGS: No acute fracture or dislocation within the pelvis or hips. The sacrum is intact. Degenerative changes within the hips and bilateral sacroiliac joints. No radiopaque foreign bodies. IMPRESSION: No fracture or dislocation within the pelvis or hips. ACT 112: Negative or not required by law. Electronically signed by: Franck Kilpatrick M.D. 10/23/2022 8:[address] 10/23/22 19:09 Exam(s): CT CHEST With Contrast IV Amt: 89 EXAM: CT Chest With Intravenous Contrast CLINICAL HISTORY: Reason for exam: fall hypoxia. TECHNIQUE: Axial computed tomography images of the chest with intravenous contrast. CTDI is 28.14 mGy and DLP is 951.03 mGy-cm. Automated exposure control was utilized for the study. A dose lowering technique was utilized adhering to the principles of ALARA. CONTRAST: Patient received 89 of IV contrast COMPARISON: No relevant prior studies available. FINDINGS: Bones are demineralized. There is no acute fracture or dislocation. Patient has undergone previous sternotomy and CABG. Coronary arteries are calcified. Heart size is upper limits of normal. There is no pericardial effusion. There is no adenopathy. There is no thoracic aortic aneurysm or dissection. Main pulmonary artery is normal. There is no mediastinal hematoma. There is no airspace consolidation, pulmonary contusion, pulmonary mass, pleural effusion, or pneumothorax. IMPRESSION: No acute traumatic findings. Electronically signed by: Yane Raya M.D. 10/23/22 20:34 PM ECG Data Attestation: I personally reviewed and interpreted this ECG as follows: Additional Comments: Sinus rhythm with rate 91. AR 202 QRS 132 QTc 467. Right bundle branch block present. No ST elevation or ST depression. [facility] Narrative 185: The patient was evaluated in room C1. A complete history and physical exam was performed Cardiac monitoring: An order was placed for continuous cardiac monitoring. The monitor shows a rate of 90 with sinus rhythm interpreted by me Patient hypoxic on room air. Supplemental oxygen was applied via nasal cannula 1 L which improved the patient's oxygen saturation. 1918: No pneumothorax on chest x-ray viewed by me. 005: Vital signs stable on supplemental oxygen. Imaging shows no acute traumatic injury. Stable hydrocephalus. Labs are unremarkable with exception of a low magnesium. Magnesium repletion started in the emergency department. [facility] Impression & Plan Hypomagnesemia, Hypoxia, Normal pressure hydrocephalus Discharge Plan Visit Data Chief Complaint: Fall Stated Complaint: FALL, NAUSEA, BUTTOCKS PAIN ED Provider: Valentin Bailey Discharge Problem: Hypomagnesemia, Hypoxia, Normal pressure hydrocephalus Patient Disposition: Admitted As Inpatient Discharge Instructions Interventions: ED Discharge Assessment Last Done: 10/23/22 23:26
[2022-10-23 19:49] LABS: iSTAT Creatinine 1.1 mg/dl (0.6-1.3); iSTAT Hemoglobin 12.6 g/dl (14.0-18.0); iSTAT Ionized Calcium 1.17 mmol/l (1.12-1.32); iSTAT Potassium 3.7 mmol/L (3.3-5.0)
[2022-10-23 19:52] LABS: Base Excess VBG -0.7 mEq/L; HCO3 VBG 23 mmol/L; Oxygen Saturation VBG 89.2 %; PCO2 VBG 36 mmHg (38-50); PO2 VBG 60 mmHg; pH VBG 7.42 (7.36-7.41)
[2022-10-23 20:04] LABS: Basophils # (auto) 0.02 K/uL (0.00-0.20); Basophils % (auto) 0.2 %; Eosinophils # (auto) 0.04 K/uL (0.00-0.50); Eosinophils % (auto) 0.4 %; Hematocrit (blood only) 36.4 % (42.0-52.0); Hemoglobin 12.5 g/dl (14.0-18.0); Immature Granulocytes # (auto) 0.03 K/uL (0.01-0.20); Immature Granulocytes % (auto) 0.3 %; Lymphocytes # (auto) 1.15 K/uL (1.20-3.40); Lymphocytes % (auto) 12.1 %; Mean Corpuscular Hemoglobin 30.9 pg (25.0-34.0); Mean Corpuscular Hgb Conc 34.3 g/dL (32.0-36.0); Mean Corpuscular Volume 89.9 fL (80.0-100.0); Mean Platelet Volume 9.5 fL (9.4-12.4); Monocytes # (auto) 0.67 K/uL (0.11-0.59); Neutrophils # (auto) 7.63 K/uL (1.40-6.50); Platelet Count 183 K/uL (130-400); RDW Coefficient of Variation 13.7 % (11.5-14.5); RDW Standard Deviation 44.6 fL (36.4-46.3); Red Blood Count 4.05 M/uL (4.70-6.10); White Blood Count 9.54 K/ul (4.8-10.8)
[2022-10-23] MEDS ORDERED: OPTIRAY 320 100ml IV ONE (20:08)
--- NOTE | 2022-10-23 20:10 | XRay Report ---
XR chest 1V portable HISTORY: fall COMPARISON: Chest and abdominal series 05/22/2014. FINDINGS: No pneumothorax. No pleural effusions. There are poststernotomy changes. There are calcific ations within the aortic knob. No focal lung consolidations to suggest pneumonia. No evidence for pul monary edema. Bibasilar linear densities favor subsegmental atelectasis. This is similar to the prior study. IMPRESSION: No significant change compared to the prior study. No acute process. ACT 112: Negative or not required by law. Electronically signed by: Franck Kilpatrick M.D. 10/23/2022 8:09 PM
--- NOTE | 2022-10-23 20:11 | XRay Report ---
XR pelvis 1-2V routine CLINICAL HISTORY: fall. Pelvic pain. COMPARISON STUDY: None. FINDINGS: No acute fracture or dislocation within the pelvis or hips. The sacrum is intact. Degenerat wang changes within the hips and bilateral sacroiliac joints. No radiopaque foreign bodies. IMPRESSION: No fracture or dislocation within the pelvis or hips. ACT 112: Negative or not required by law. Electronically signed by: Franck Kilpatrick M.D. 10/23/2022 8:10 PM
[2022-10-23 20:18] LABS: BUN Creatinine Ratio 18.1 (10-20); Calcium 9.5 mg/dl (8.6-10.3); Est GFR (African American) 79.5 ml/min; Est GFR (Non-African American) 68.6 ml/min; Potassium 3.7 mmol/L (3.5-5.1)
[2022-10-23 20:25] LABS: Albumin Level 4.2 gm/dl (3.4-5.0); Bilirubin Direct 0.1 mg/dl (0-0.2); Bilirubin,Total 0.8 mg/dl (0.2-1.0); Magnesium 0.9 mg/dl (1.7-2.4); Total Protein 6.6 gm/dl (6.0-8.3); Troponin I High Sensitivity 6.9 pg/ml (0-20)
--- NOTE | 2022-10-23 20:29 | CT Scan Report ---
Exam(s): CT HEAD Without Contrast EXAM: CT Head Without Intravenous Contrast CLINICAL HISTORY: Reason for exam: fall. TECHNIQUE: Axial computed tomography images of the head/brain without intravenous contrast. CTDI is 25.6 mGy and DLP is 486.93 mGy-cm. Automated exposure control was utilized for the study. A dose lowering technique was utilized adhering to the principles of ALARA. COMPARISON: 08/26/18 FINDINGS: Brain: Generalized parenchymal volume loss. Chronic small vessel ischemic changes. Zazueta-white matter differentiation maintained. No acute intracranial hemorrhage, mass-effect, or edema. Ventricles: Similar ventricular enlargement, favored to reflect central greater than cortical cerebral atrophy, but clinical correlation to exclude normal pressure hydrocephalus is recommended. Bones/joints: Unremarkable. No acute fracture. Soft tissues: Unremarkable. Vasculature: Intracranial atherosclerosis. Sinuses: Unremarkable as visualized. No acute sinusitis. Mastoid air cells: Unremarkable as visualized. No mastoid effusion. Orbits: Bilateral lens replacements. IMPRESSION: 1. No acute intracranial process appeared 2. Similar ventricular enlargement, favored to reflect central greater than cortical cerebral atrophy, but clinical correlation to exclude normal pressure hydrocephalus is recommended. Electronically signed by: Yane Raya M.D. 10/23/22 20:28 PM
--- NOTE | 2022-10-23 20:31 | CT Scan Report ---
Exam(s): CT C SPINE EXAM: CT Cervical Spine Without Intravenous Contrast CLINICAL HISTORY: Reason for exam: fall. TECHNIQUE: Axial computed tomography images of the cervical spine without intravenous contrast. CTDI is 36.67 mGy and DLP is 624.41 mGy-cm. Automated exposure control was utilized for the study. A dose lowering technique was utilized adhering to the principles of ALARA. COMPARISON: No relevant prior studies available. FINDINGS: Vertebral body height and alignment are maintained. There is cervical spine straightening. There is no acute fracture or traumatic subluxation. Bones are demineralized. Anterior ossification the cervical spine raises the possibility of diffuse idiopathic skeletal hyperostosis. Disc heights are relatively maintained for patient age. There is multilevel bilateral facet degeneration. There is lower cervical uncovertebral joint degeneration. There is no significant central spinal canal stenosis. There is mild right foraminal narrowing at C3-C4 and mild right foraminal narrowing at C6-C7. Prevertebral soft tissues appear unremarkable. IMPRESSION: Cervical spine straightening without acute osseous abnormality. Electronically signed by: Yane Raya M.D. 10/23/22 20:30 PM
--- NOTE | 2022-10-23 20:33 | CT Scan Report ---
Exam(s): CT ABDOMEN + PELVIS With Contrast IV Amt: 89ml EXAM: CT Abdomen and Pelvis With Intravenous Contrast CLINICAL HISTORY: Reason for exam: fall. TECHNIQUE: Axial computed tomography images of the abdomen and pelvis with intravenous contrast. CTDI is 26.54 mGy and DLP is 1573.33 mGy-cm. Automated exposure control was utilized for the study. A dose lowering technique was utilized adhering to the principles of ALARA. CONTRAST: Patient received 89ml of IV contrast COMPARISON: No relevant prior studies available. FINDINGS: Chest findings are reported separately. Gallbladder surgically absent. There is no significant biliary dilatation. Liver, spleen, pancreas, and adrenal glands are unremarkable. Kidneys enhance symmetrically. There is no hydronephrosis. There are small simple parapelvic cysts in the right kidney for which no further follow-up is required. There are simple parapelvic cysts in the left kidney as well as exophytic cortical cysts, the largest measuring 9.8 cm; no further follow-up is required. There are multiple nonobstructing stones in each kidney, largest in the left kidney measuring 6 mm. There is no evidence of renal injury. There is atherosclerosis without aortic aneurysm. There is no vascular injury. There is no adenopathy, free fluid, or free air. Urinary bladder and prostate are unremarkable. Appendix is visualized and appears normal. There is no evidence of small or large bowel obstruction. There is no mucosal thickening. Sigmoid diverticulosis is present, without evidence of acute diverticulitis. Bones are demineralized. There are age-related degenerative changes of the spine. There are no acute osseous findings. IMPRESSION: 1. No acute traumatic findings. 2. Nonobstructing kidney stones. No hydronephrosis. Electronically signed by: Yane Raya M.D. 10/23/22 20:32 PM
--- NOTE | 2022-10-23 20:34 | CT Scan Report ---
Exam(s): CT CHEST With Contrast IV Amt: 89 EXAM: CT Chest With Intravenous Contrast CLINICAL HISTORY: Reason for exam: fall hypoxia. TECHNIQUE: Axial computed tomography images of the chest with intravenous contrast. CTDI is 28.14 mGy and DLP is 951.03 mGy-cm. Automated exposure control was utilized for the study. A dose lowering technique was utilized adhering to the principles of ALARA. CONTRAST: Patient received 89 of IV contrast COMPARISON: No relevant prior studies available. FINDINGS: Bones are demineralized. There is no acute fracture or dislocation. Patient has undergone previous sternotomy and CABG. Coronary arteries are calcified. Heart size is upper limits of normal. There is no pericardial effusion. There is no adenopathy. There is no thoracic aortic aneurysm or dissection. Main pulmonary artery is normal. There is no mediastinal hematoma. There is no airspace consolidation, pulmonary contusion, pulmonary mass, pleural effusion, or pneumothorax. IMPRESSION: No acute traumatic findings. Electronically signed by: Yane Raya M.D. 10/23/22 20:34 PM
[2022-10-23 20:37] LABS: INR 1.1 (0.9-1.1); Partial Thromboplastin Ratio 1.2; Partial Thromboplastin Time 32.5 Seconds (21.0-31.0); Prothrombin Time 11.6 Seconds (9.0-12.0)
[2022-10-23] MEDS: MAGNESIUM SULFATE / D5W 1 GM/100 ML BAG IV SCH ×3 (20:46→23:43)
--- NOTE | 2022-10-23 21:41 | History & Physical Report ---
Date of Service October 23, 2022 Assessment & Plan (1) Hypomagnesemia: Plan: 77yo male with multiple medical comorbidities presenting from home after a fall. No injuries sustained. Patient found to have hypomagnesemia with Mg=0.9. Potassium and calcium WNL. Patient has received 2gm of Magnesium sulfate thus far -Admit to medical with telemetry -Continue magnesium repletion - 3 additional grams ordered -Repeat Mg level in AM (2) Normal pressure hydrocephalus: Plan: Patient with normal pressure hydrocephalus. He follow with Neurosurgery at [facility] and is to have a shunt placed in December or sooner if able. He does endorse increased imbalance and falls as well as urinary incontinence and periods of confusion. CT of the head obtained with ventricular enlargement and some cortical cerebral atrophy which is similar to prior study. No neurological deficits. -Monitor -Followup with Neurosurgery outpatient as directed (3) Uncontrolled type 2 diabetes mellitus with insulin therapy: Plan: Patient is compliant with home medications - Trulicity, glargine U-300 and Metformin. Last HgbA1C 6 on 11/30/21 -Goal blood sugar 110-140 -Glargine 15u BID -ISS -Hold Metformin (4) CAD (coronary artery disease): Plan: Patient with CAD s/[place] CAB[place] [facility] [place] Denies chest pain. Troponin within normal range at 6.9 -Telemetry monitoring -Magnesium repletion -Continue ASA, Atorvastatin, Metoprolol and Losartan (5) Hypertension: Plan: Blood pressure mildly elevated -Continue Amlodipine, Metoprolol, Losartan, Spironolactone -Monitor (6) Gastroesophageal reflux disease due to diaphragmatic hernia: Plan: Chronic. Stable -will hold PPI in setting of hypomagnesemia History of Present Illness Chief Complaint: fall Primary Care Provider: Daniel Rondon MD Simone Corona is a 77yo male with history of DM, CAD s/p CABG, NAFLD presenting after a fall at home. History obtained from patient and at bedside. Patient reports he has been having worsening balance and increased frequency of falls for the last two years. He does have a diagnosis of normal pressure hydrocephalus for which he follows with Neurosurgery at [facility] in [place]. He is scheduled for his next Neurosurgery followup in November with shunt placement tentatively planned for sometime in December or earlier if possible. Patient got up to use the bathroom on 10/21/22. He doesn't clearly remember falling but his found him down in the bathroom around 08:30. He was having some difficulty getting up due to weakness. Patient denies chest pain, cough, SOB. He does have some mid-abdominal pain that has been ongoing for several months. He has urinary incontinence as well as episodes of confusion that have been ongoing x 2 years. In the ER patient afebrile, HD stable, NAD. No additional complaints ER Course: Magnesium 2gm Allergies Allergy/AdvReac Type Severity Reaction Status Date / Time morphine AdvReac Unknown nasty Verified 06/09/22 10:43 Home Medications Medication Instructions Recorded Confirmed Type cholecalciferol (vitamin D3) 125 125 mcg PO DAILY 07/29/19 10/23/22 History mcg (5,000 unit) capsule OneTouch Ultra Blue Test Strip #200 ea 07/26/20 10/23/22 Rx (blood sugar diagnostic) omeprazole 20 mg capsule,delayed 20 mg PO DAILY #30 caps 04/03/22 10/23/22 Rx release mecobalamin (vitamin B12) 1,000 1,000 mcg PO DAILY 05/01/22 10/23/22 History mcg chewable tablet amlodipine 10 mg tablet 10 mg PO DAILY #90 tabs 06/26/22 10/23/22 Rx aspirin 81 mg tablet,delayed 162 mg PO QAM #180 tabs 06/26/22 10/23/22 Rx release atorvastatin 80 mg tablet 80 mg PO QPM #90 tabs 06/26/22 10/23/22 Rx dulaglutide 3 mg/0.5 mL 3 mg (0.5 mL) subcut Q7D #2 mL 06/26/22 10/23/22 Rx subcutaneous pen injector losartan 25 mg tablet 12.5 mg PO DAILY #90 tabs 06/26/22 10/23/22 Rx metformin 1,000 mg tablet 1,000 mg PO BID #180 tabs 06/26/22 10/23/22 Rx metoprolol tartrate 25 mg tablet 25 mg PO BID #180 tabs 06/26/22 10/23/22 Rx pen needle, diabetic 32 gauge x #90 ea 06/26/22 10/23/22 Rx 5/32" (BD Ultra-Fine Aimee Pen Needle) spironolactone 25 mg tablet 25 mg PO DAILY #90 tabs 06/26/22 10/23/22 Rx solifenacin 10 mg tablet (Vesicare) 10 mg PO DAILY #30 tabs 06/30/22 10/23/22 Rx lorazepam 0.5 mg tablet 0.5 mg PO .COMPLEX #2 tabs 07/04/22 10/23/22 Rx insulin glargine U-300 conc 300 30 unit (0.1 mL) subcut HS #12 mL 08/30/22 10/23/22 Rx unit/mL (3 mL) subcutaneous pen (Toujeo Max U-300 SoloStar) Past Med/Surg History Medical History (Updated 10/23/22 @ 23:01 by Tania Wylie DO) History of pancreatitis Hx of carpal tunnel syndrome Morbid obesity Nephrolithiasis T2DM (type 2 diabetes mellitus) Surgical History H/O lithotripsy b/l History of laparoscopic cholecystectomy History of [place]illectomy S/P CABG [place] 4 [place] [facility] [place] Family History Mother Hypertension Father Hypertension Cardiac disorder Sudden Sister Cancer Social History Smoking Status: Former smoker Age Started Using Tobacco: 17; Age Quit Using Tobacco: 54; packs per day: 1; Cigarettes Per Day: 1; Second Hand Exposure: No; Do You Dip or Chew Tobacco: No; Hx Alcohol Use: No Hx Substance Use: No marital status: current occupational status: 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 Feels Safe at Home: Yes Diet: regular caffeine: Yes Seatbelt Use: sometimes Sunscreen Use: No Assistive Devices: Denture - Upper and Denture - Lower Review of Systems Review of Systems: General: Patient denies fevers, chills, malaise, weight loss or weight gain Skin: Patient denies bruising, bleeding or rash HEENT: Patient denies headache, visual changes, sore throat, difficulty swal lowing, stiff neck Cardio: Patient denies chest pain, palpitations, shortness of breath, lightheadedness Pulmonary: Patient denies cough, wheeze GI: Patient denies abdominal pain, nausea, vomiting, diarrhea, constipation : Patient denies dysuria, frequency, urgency or hematuria Musculoskeletal: Patient denies swelling or pain of the joints, edema Neuro: Patient denies numbness, tingling, weakness or falls Psych: Patient denies depression, anxiety Physical Exam Physical Exam: General: patient resting comfortably, NAD, non-toxic in appearance, AA&O x 4 Skin: warm, dry, intact, no rashes or lesions HEENT: NC/AT, PERRL, EOMI, anicteric sclera, conjunctiva without injection, external ear normal to inspection and nontender, nares patent, moist mucus membranes, dentition intact, no oropharyngeal lesions, neck supple, trachea midline, no LAD, no thyromegaly, no JVD Heart: +S1/S2, regular, no m/r/g Lungs: equal air entry bilaterally, no rales/rhonchi/wheezes Abd: +BS, soft, NT/ND, no masses/organomegaly/ascites Ext: warm, 2+ pulses in UE/LE bilaterally, no clubbing/cyanosis or edema Neuro: nonfocal, patient AA&O x 4, speech intact, no facial droop, moving all extremities on command with equal strength 5/5 Results & Data Results & Data Vital Signs (Past 12 Hours) Vital Signs Temp Pulse Resp BP Pulse Ox O2 Del Method O2 Flow Rate 10/23/22 21:01 92 H 14 147/81 H 93 Room Air 10/23/22 18:47 88 10/23/22 20:30 90 20 147/81 H 94 Nasal Cannula 1 10/23/22 19:30 88 24 136/80 92 Nasal Cannula 1 10/23/22 18:38 36.6 C 94 H 20 146/88 H 88 L Room Air Laboratory Results Laboratory Results WBC 9.54 K/ul (4.8-10.8) 10/23/22 19:25 RBC 4.05 M/uL (4.70-6.10) L 10/23/22 19:25 Hgb 12.5 g/dl (14.0-18.0) L 10/23/22 19:25 POC Hgb 12.6 g/dl (14.0-18.0) L 10/23/22 19:36 Hct 36.4 % (42.0-52.0) L 10/23/22 19:25 POC Hct 37 % (42-52) L 10/23/22 19:36 MCV 89.9 fL (80.0-100.0) 10/23/22 19:25 MCH 30.9 pg (25.0-34.0) 10/23/22 19:25 MCHC 34.3 g/dL (32.0-36.0) 10/23/22: RDW Std Deviation 44.6 fL (36.4-46.3) 10/23/22: RDW Coeff of [place] 13.7 % (11.5-14.5) 10/23/22: Plt Count 183 K/uL (130-400) 10/23/22: MPV 9.5 fL (9.4-12.4) 10/23/22 19:25 Immature Gran % (Auto) 0.3 % 10/23/22 19:25 Neut % (Auto) 80.0 % 10/23/22 19:25 Lymph % (Auto) 12.1 % 10/23/22 19:25 [place] % (Auto) 7.0 % 10/23/22 19:25 Eos % (Auto) 0.4 % 10/23/22 19:25 Baso % (Auto) 0.2 % 10/23/22 19:25 Neut # (Auto) 7.63 K/uL (1.40-6.50) H 10/23/22 19:25 Lymph # (Auto) 1.15 K/uL (1.20-3.40) L 10/23/22 19:25 [place] # (Auto) 0.67 K/uL (0.11-0.59) H 10/23/22 19:25 Eos # (Auto) 0.04 K/uL (0.00-0.50) 10/23/22 19:25 Baso # (Auto) 0.02 K/uL (0.00-0.20) 10/23/22 19:25 Immature Gran # (Auto) 0.03 K/uL (0.01-0.20) 10/23/22 19:25 PT 11.6 Seconds (9.0-12.0) 10/23/22 19:25 INR 1.1 (0.9-1.1) 10/23/22 19:25 APTT 32.5 Seconds (21.0-31.0) H 10/23/22 19:25 PTT Ratio 1.2 10/23/22 19:25 VBG pH 7.42 (7.36-7.41) H 10/23/22 19:25 VBG pCO2 36 mmHg (38-50) L 10/23/22 19:25 VBG pO2 60 mmHg 10/23/22 19:25 VBG HCO3 23 mmol/L 10/23/22 19:25 VBG O2 Saturation 89.2 % 10/23/22 19:25 VBG Base Excess -0.7 mEq/L 10/23/22 19:25 POC Sodium 139 mmol/L (135-144) 10/23/22 19:36 Sodium 136 mmol/L (136-145) 10/23/22 19:25 POC Potassium 3.7 mmol/L (3.3-5.0) 10/23/22 19:36 Potassium 3.7 mmol/L (3.5-5.1) 10/23/22 19:25 POC Chloride 104 mmol/L (101-112) 10/23/22 19:36 Chloride 103 mmol/L (98-107) 10/23/22 19:25 Carbon Dioxide 22 mmol/L (21-32) 10/23/22 19:25 POC Total CO2 23 mmol/L (24-31) L 10/23/22 19:36 Anion Gap 11 (3-11) 10/23/22 19:25 POC Anion Gap 17.0 mmol/L (16-25) 10/23/22 19:36 POC BUN 17 mg/dl (7-18) 10/23/22 19:36 BUN 19 mg/dl (6-23) 10/23/22 19:25 Creatinine 1.05 mg/dl (0.6-1.4) 10/23/22 19:25 POC Creatinine 1.1 mg/dl (0.6-1.3) 10/23/22 19:36 Est Cr Clr Drug Dosing 73.0 ml/min 10/23/22 19:25 Est GFR ( Amer) 79.5 ml/min 10/23/22 19:25 Est GFR (Non-Af Amer) 68.6 ml/min 10/23/22 19:25 BUN/Creatinine Ratio 18.1 (10-20) 10/23/22 19:25 Glucose 108 mg/dl (70-99(Fasting)) H 10/23/22 19:25 POC Glucose 105 mg/dl (70-99) H 10/23/22 19:05 POC Glucose (other) 107 mg/dl (70-99) H 10/23/22 19:36 Calcium 9.5 mg/dl (8.6-10.3) 10/23/22 19:25 POC Ioniz Calcium [place] 1.17 mmol/l (1.12-1.32) 10/23/22 19:36 Magnesium 0.9 mg/dl (1.7-2.4) L* 10/23/22 19:25 Total Bilirubin 0.8 mg/dl (0.2-1.0) 10/23/22 19:25 Direct Bilirubin 0.1 mg/dl (0-0.2) 10/23/22 19:25 AST 14 U/L (13-39) 10/23/22 19:25 ALT 15 U/L (7-52) 10/23/22 19:25 Alkaline Phosphatase 94 U/L (34-104) 10/23/22 19:25 Total Creatine Kinase 99 U/L (30-223) 10/23/22 19:25 Total Creatine Kinase Cancelled 10/23/22 19:25 Troponin I High Sens 6.9 pg/ml (0-20) 10/23/22 19:25 B-Natriuretic Peptide 38 pg/ml (0-100) 10/23/22 19:25 Total Protein 6.6 gm/dl (6.0-8.3) 10/23/22 19:25 Albumin 4.2 gm/dl (3.4-5.0) 10/23/22 19:25 Lipase 16 U/L (11-82) 10/23/22 19:25 Ethyl Alcohol mg/dL < 10.0 mg/dl (<10.0) 10/23/22 19:45 SARS-CoV-2, RNA, NAAT NEGATIVE (NEGATIVE) 10/23/22 21:15 Impressions Abdomen/Pelvis CT 10/23/22 18:58 Exam(s): CT ABDOMEN + PELVIS With Contrast IV Amt: 89ml EXAM: CT Abdomen and Pelvis With Intravenous Contrast CLINICAL HISTORY: Reason for exam: fall. TECHNIQUE: Axial computed tomography images of the abdomen and pelvis with intravenous contrast. CTDI is 26.54 mGy and DLP is 1573.33 mGy-cm. Automated exposure control was utilized for the study. A dose lowering technique was utilized adhering to the principles of ALARA. CONTRAST: Patient received 89ml of IV contrast COMPARISON: No relevant prior studies available. FINDINGS: Chest findings are reported separately. Gallbladder surgically absent. There is no significant biliary dilatation. Liver, spleen, pancreas, and adrenal glands are unremarkable. Kidneys enhance symmetrically. There is no hydronephrosis. There are small simple parapelvic cysts in the right kidney for which no further follow-up is required. There are simple parapelvic cysts in the left kidney as well as exophytic cortical cysts, the largest measuring 9.8 cm; no further follow-up is required. There are multiple nonobstructing stones in each kidney, largest in the left kidney measuring 6 mm. There is no evidence of renal injury. There is atherosclerosis without aortic aneurysm. There is no vascular injury. There is no adenopathy, free fluid, or free air. Urinary bladder and prostate are unremarkable. Appendix is visualized and appears normal. There is no evidence of small or large bowel obstruction. There is no mucosal thickening. Sigmoid diverticulosis is present, without evidence of acute diverticulitis. Bones are demineralized. There are age-related degenerative changes of the spine. There are no acute osseous findings. IMPRESSION: 1. No acute traumatic findings. 2. Nonobstructing kidney stones. No hydronephrosis. Electronically signed by: Yane Raya M.D. 10/23/22 20:[address] 10/23/22 18:59 Exam(s): CT C SPINE EXAM: CT Cervical Spine Without Intravenous Contrast CLINICAL HISTORY: Reason for exam: fall. TECHNIQUE: Axial computed tomography images of the cervical spine without intravenous contrast. CTDI is 36.67 mGy and DLP is 624.41 mGy-cm. Automated exposure control was utilized for the study. A dose lowering technique was utilized adhering to the principles of ALARA. COMPARISON: No relevant prior studies available. FINDINGS: Vertebral body height and alignment are maintained. There is cervical spine straightening. There is no acute fracture or traumatic subluxation. Bones are demineralized. Anterior ossification the cervical spine raises the possibility of diffuse idiopathic skeletal hyperostosis. Disc heights are relatively maintained for patient age. There is multilevel bilateral facet degeneration. There is lower cervical uncovertebral joint degeneration. There is no significant central spinal canal stenosis. There is mild right foraminal narrowing at C3-C4 and mild right foraminal narrowing at C6-C7. Prevertebral soft tissues appear unremarkable. IMPRESSION: Cervical spine straightening without acute osseous abnormality. Electronically signed by: Yane Raya M.D. 10/23/22 20:30 PM Chest X-Ray 10/23/22 18:59 XR chest 1V portable HISTORY: fall COMPARISON: Chest and abdominal series 05/22/2014. FINDINGS: No pneumothorax. No pleural effusions. There are poststernotomy changes. There are calcifications within the aortic knob. No focal lung consolidations to suggest pneumonia. No evidence for pulmonary edema. Bibasilar linear densities favor subsegmental atelectasis. This is similar to the prior study. IMPRESSION: No significant change compared to the prior study. No acute process. ACT 112: Negative or not required by law. Electronically signed by: Franck Kilpatrick M.D. 10/23/2022 8:[address] 10/23/22 18:59 Exam(s): CT HEAD Without Contrast EXAM: CT Head Without Intravenous Contrast CLINICAL HISTORY: Reason for exam: fall. TECHNIQUE: Axial computed tomography images of the head/brain without intravenous contrast. CTDI is 25.6 mGy and DLP is 486.93 mGy-cm. Automated exposure control was utilized for the study. A dose lowering technique was utilized adhering to the principles of ALARA. COMPARISON: 08/26/18 FINDINGS: Brain: Generalized parenchymal volume loss. Chronic small vessel ischemic changes. Zazueta-white matter differentiation maintained. No acute intracranial hemorrhage, mass-effect, or edema. Ventricles: Similar ventricular enlargement, favored to reflect central greater than cortical cerebral atrophy, but clinical correlation to exclude normal pressure hydrocephalus is recommended. Bones/joints: Unremarkable. No acute fracture. Soft tissues: Unremarkable. Vasculature: Intracranial atherosclerosis. Sinuses: Unremarkable as visualized. No acute sinusitis. Mastoid air cells: Unremarkable as visualized. No mastoid effusion. Orbits: Bilateral lens replacements. IMPRESSION: 1. No acute intracranial process appeared 2. Similar ventricular enlargement, favored to reflect central greater than cortical cerebral atrophy, but clinical correlation to exclude normal pressure hydrocephalus is recommended. Electronically signed by: Yane Raya M.D. 10/23/22 20:28 PM Pelvis X-Ray 10/23/22 18:59 XR pelvis 1-2V routine CLINICAL HISTORY: fall. Pelvic pain. COMPARISON STUDY: None. FINDINGS: No acute fracture or dislocation within the pelvis or hips. The sacrum is intact. Degenerative changes within the hips and bilateral sacroiliac joints. No radiopaque foreign bodies. IMPRESSION: No fracture or dislocation within the pelvis or hips. ACT 112: Negative or not required by law. Electronically signed by: Franck Kilpatrick M.D. 10/23/2022 8:[address] 10/23/22 19:09 Exam(s): CT CHEST With Contrast IV Amt: 89 EXAM: CT Chest With Intravenous Contrast CLINICAL HISTORY: Reason for exam: fall hypoxia. TECHNIQUE: Axial computed tomography images of the chest with intravenous contrast. CTDI is 28.14 mGy and DLP is 951.03 mGy-cm. Automated exposure control was utilized for the study. A dose lowering technique was utilized adhering to the principles of ALARA. CONTRAST: Patient received 89 of IV contrast COMPARISON: No relevant prior studies available. FINDINGS: Bones are demineralized. There is no acute fracture or dislocation. Patient has undergone previous sternotomy and CABG. Coronary arteries are calcified. Heart size is upper limits of normal. There is no pericardial effusion. There is no adenopathy. There is no thoracic aortic aneurysm or dissection. Main pulmonary artery is normal. There is no mediastinal hematoma. There is no airspace consolidation, pulmonary contusion, pulmonary mass, pleural effusion, or pneumothorax. IMPRESSION: No acute traumatic findings. Electronically signed by: Yane Raya M.D. 10/23/22 20:34 PM Code Status & VTE Plan VTE Prophylaxis Plan VTE Prophylaxis will be ordered: Yes PG Care Time/CCT Total # of Minutes Spent Total Time Spent with Patient: Total time spent is greater than 50% in coordination of care (as documented) at patient's floor/unit and/or counseling patient: Coding Level of Care Code 51640 INT INP/OBS CARE 2/55MIN Diagnoses Hypomagnesemia E83.42 Normal pressure hydrocephalus G91.2 Uncontrolled type 2 diabetes mellitus with insulin therapy E11.65; Z79.4 CAD (coronary artery disease) I25.10 Hypertension I10 Gastroesophageal reflux disease due to diaphragmatic hernia K21.9; K44.9
[2022-10-23] MEDS ORDERED: GLUCOSE 40% GEL 15 GM TUBE PO PRN (23:25)
[2022-10-23] MEDS ORDERED: GLUCOSE 10 TAB/TUBE PO PRN (23:25)
[2022-10-23] MEDS ORDERED: ONDANSETRON INJ 2 MG/ML 2 ML VIAL IV PRN (23:25)
[2022-10-23] MEDS ORDERED: CARBOHYDRATES FOR HYPOGLYCEMIA PO PRN (23:25)
[2022-10-23] MEDS ORDERED: DEXTROSE 50% 50 ML SYRINGE IV PRN (23:25)
[2022-10-23] MEDS ORDERED: GLUCAGON FOR INJ 1 MG VIAL SQ PRN (23:25)
[2022-10-24] MEDS: MAGNESIUM SULFATE / D5W 1 GM/100 ML BAG IV SCH ×2 (01:54→03:53)
[2022-10-24] MEDS: ENOXAPARIN INJ 40 MG/0.4 ML SYR SQ SCH (06:19)
[2022-10-24] MEDS: ACETAMINOPHEN 325 MG TAB PO PRN ×2 (06:22→17:57)
[2022-10-24 07:19] LABS: Hemoglobin 12.4 g/dl (14.0-18.0); Mean Corpuscular Hemoglobin 30.4 pg (25.0-34.0); Mean Corpuscular Hgb Conc 34.4 g/dL (32.0-36.0); Mean Corpuscular Volume 88.2 fL (80.0-100.0); Mean Platelet Volume 9.7 fL (9.4-12.4); Platelet Count 179 K/uL (130-400); RDW Coefficient of Variation 13.4 % (11.5-14.5); RDW Standard Deviation 43.5 fL (36.4-46.3); Red Blood Count 4.08 M/uL (4.70-6.10); White Blood Count 7.12 K/ul (4.8-10.8)
--- NOTE | 2022-10-24 07:28 | Hospitalist Progress Note ---
Date of Service October 24, 2022 Assessment & Plan (1) Hypomagnesemia: Plan: 77yo male with multiple medical comorbidities presenting from home after a fall. No injuries sustained. Patient found to have hypomagnesemia with Mg=0.9. Potassium and calcium WNL. Patient has received 2gm of Magnesium sulfate -Continue magnesium repletion - 3 additional grams ordered (2) Normal pressure hydrocephalus: Plan: Patient with normal pressure hydrocephalus. He follow with Neurosurgery at [facility] and is to have a shunt placed in December or sooner if able. He does endorse increased imbalance and falls as well as urinary incontinence and periods of confusion. CT of the head obtained with ventricular enlargement and some cortical cerebral atrophy which is similar to prior study. No neurological deficits. Left PT OT evaluation -Followup with Neurosurgery outpatient as directed (3) Uncontrolled type 2 diabetes mellitus with insulin therapy: Plan: Patient is compliant with home medications - Trulicity, glargine U-300 and Metformin. Last HgbA1C 6 on 11/30/21 -Goal blood sugar 110-140 -Glargine 15u BID -ISS -Hold Metformin (4) CAD (coronary artery disease): Plan: Patient with CAD s/p CABG x 4V in 1999 at [facility] [place]. Denies chest pain. Troponin within normal range at 6.9 -No signs of ACS -Magnesium repletion -Continue ASA, Atorvastatin, Metoprolol and Losartan (5) Hypertension: Plan: Blood pressure mildly elevated -Continue Amlodipine, Metoprolol, Losartan, Spironolactone -Monitor (6) Gastroesophageal reflux disease due to diaphragmatic hernia: Plan: Chronic. Stable -will hold PPI in setting of hypomagnesemia Plan On presentation patient had CT scan of head, cervical spine, chest,abdomen pelvis, plain chest x-ray and plain pelvic x-ray no evidence of trauma. Concern that his falls are just his sequela of his normal pressure hydrocephalus which is yet to be treated. We will prefer to have PT OT evaluation prior to him going home so he does not fall and have an injury Admission and Anticipated Discharge Date Admission Date: October 23, 2022 Subjective Pt recalls being weak and falling at home, typically urinarily incontinent, no other focal issues Physical Exam Physical Exam: awake oriented and conversant cardiac exam is regular lungs are clear abd is soft and non tender extremities are with trace edema neurologically is non focal Results & Data Results & Data Vital Signs (Past 12 Hours) Vital Signs Pulse Resp BP Pulse Ox O2 Del Method O2 Flow Rate 10/24/22 06:00 88 18 143/85 H 90 Room Air 10/24/22 04:00 84 22 146/85 H 90 10/24/22 03:00 86 20 148/83 H 93 10/24/22 02:00 85 22 155/86 H 90 Room Air 10/24/22 01:03 82 20 152/90 H 93 Nasal Cannula 2 10/24/22 01:00 82 24 152/90 H 94 10/24/22 00:00 86 28 H 140/98 94 Nasal Cannula 2 10/23/22 22:45 86 10/23/22 23:30 85 20 157/99 H 91 Nasal Cannula 1 10/23/22 23:00 89 19 125/101 H 93 Nasal Cannula 1 10/23/22 22:50 86 14 132/85 96 Nasal Cannula 1 10/23/22 22:30 87 14 151/90 H 96 Nasal Cannula 1 10/23/22 22:00 87 21 152/79 H 91 Room Air 10/23/22 21:30 89 17 135/76 91 Room Air 10/23/22 21:01 92 H 14 147/81 H 93 Room Air 10/23/22 20:30 90 20 147/81 H 94 Nasal Cannula 1 10/23/22 19:30 88 24 136/80 92 Nasal Cannula 1 Laboratory Results Reviewed CBC Ordered urine cultures not collected yet PG Care Time/CCT Total # of Minutes Spent Total Time Spent with Patient: Total time spent is greater than 50% in coordination of care (as documented) at patient's floor/unit and/or counseling patient: Coding Level of Care Code 39336 SUB INP/OBS CARE 2/35MIN Diagnoses Hypomagnesemia E83.42 Normal pressure hydrocephalus G91.2 Uncontrolled type 2 diabetes mellitus with insulin therapy E11.65; Z79.4 CAD (coronary artery disease) I25.10 Hypertension I10 Gastroesophageal reflux disease due to diaphragmatic hernia K21.9; K44.9
[2022-10-24 07:40] LABS: BUN Creatinine Ratio 14.6 (10-20); Calcium 9.1 mg/dl (8.6-10.3); Creatinine Clr Calc Pharmacy 79.9 ml/min; Est GFR (African American) 88.6 ml/min; Est GFR (Non-African American) 76.5 ml/min; Phosphorus 3.1 mg/dl (2.5-4.9); Potassium 3.8 mmol/L (3.5-5.1)
[2022-10-24] MEDS: amLODIPine BESYLATE 5 MG TAB PO SCH (08:13)
[2022-10-24] MEDS: METOPROLOL TARTRATE 25 MG TAB PO SCH ×2 (08:14→21:03)
[2022-10-24] MEDS: LOSARTAN POTASSIUM 25 MG TAB PO SCH (08:14)
[2022-10-24] MEDS: ASPIRIN 81 MG ECTAB PO SCH (08:14)
[2022-10-24] MEDS: SPIRONOLACTONE 25 MG TAB PO SCH (08:14)
[2022-10-24 09:04] LABS: Estimated Average Glucose 126 mg/dl
[2022-10-24] MEDS: INSULIN ASPART PER UNIT CHARGE SC SCH ×4 (09:33→21:02)
[2022-10-24] MEDS: LANTUS PER UNIT CHARGE SQ SCH ×2 (09:33→21:01)
[2022-10-24] MEDS: ATORVASTATIN 40 MG TAB PO SCH (21:02)
[2022-10-25] MEDS: ENOXAPARIN INJ 40 MG/0.4 ML SYR SQ SCH (05:10)
[2022-10-25] MEDS: INSULIN ASPART PER UNIT CHARGE SC SCH ×4 (08:34→20:04)
[2022-10-25] MEDS: amLODIPine BESYLATE 5 MG TAB PO SCH (08:35)
[2022-10-25] MEDS: ASPIRIN 81 MG ECTAB PO SCH (08:35)
[2022-10-25] MEDS: METOPROLOL TARTRATE 25 MG TAB PO SCH ×2 (08:35→20:12)
[2022-10-25] MEDS: LOSARTAN POTASSIUM 25 MG TAB PO SCH (08:35)
[2022-10-25] MEDS: SPIRONOLACTONE 25 MG TAB PO SCH (08:36)
[2022-10-25] MEDS: LANTUS PER UNIT CHARGE SQ SCH ×2 (09:04→20:11)
[2022-10-25] MEDS: ACETAMINOPHEN 325 MG TAB PO PRN (11:17)
[2022-10-25 11:27] LABS: Calcium 9.4 mg/dl (8.6-10.3); Magnesium 1.7 mg/dl (1.7-2.4)
[2022-10-25 11:32] LABS: BUN Creatinine Ratio 15.1 (10-20); Creatinine Clr Calc Pharmacy 72.3 ml/min; Est GFR (African American) 78.6 ml/min; Est GFR (Non-African American) 67.8 ml/min
--- NOTE | 2022-10-25 13:29 | Electrocardiogram Report ---
Test Reason : Blood Pressure : / mmHG Vent. Rate : 091 BPM Atrial Rate : 091 BPM P-R Int : 202 ms QRS Dur : 132 ms QT Int : 380 ms P-R-T Axes : 000 177 150 degrees QTc Int : 467 ms Suspect arm lead reversal, interpretation assumes no reversal Normal sinus rhythm Right bundle branch block Right ventricular hypertrophy Right axis deviation Lateral infarct (cited on or before 22-MAY-2014) possible Inferior infarct , age undetermined T wave abnormality, consider anterior ischemia Abnormal ECG When compared with ECG of 22-MAY-2014 13:39, Criteria for Anteroseptal infarct are no longer Present Inferior infarct is now Present Confirmed by Daniel Morrell ([id number]) on 10/25/2022 1:28:57 PM Referred By: REFERRED SELF Confirmed By:Jas Morrell
--- NOTE | 2022-10-25 16:28 | Hospitalist Progress Note ---
Date of Service October 25, 2022 Assessment & Plan (1) Hypomagnesemia: Plan: 77yo male with multiple medical comorbidities presenting from home after a fall. No injuries sustained. Patient found to have hypomagnesemia with Mg=0.9. Potassium and calcium WNL. Patient has received 2gm of Magnesium sulfate magnesium is low normal replete orally (2) Normal pressure hydrocephalus: Plan: Patient with normal pressure hydrocephalus. He follow with Neurosurgery at [facility] and is to have a shunt placed in December or sooner if able. He does endorse increased imbalance and falls as well as urinary incontinence and periods of confusion. CT of the head obtained with ventricular enlargement and some cortical cerebral atrophy which is similar to prior study. No neurological deficits. Left PT OT evaluation -Followup with Neurosurgery outpatient as directed, will try to call to move up (3) Uncontrolled type 2 diabetes mellitus with insulin therapy: Plan: Patient is compliant with home medications - Trulicity, glargine U-300 and Metformin. Last HgbA1C 6 on 11/30/21 -Goal blood sugar 110-140 -Glargine 15u BID -ISS -Hold Metformin (4) CAD (coronary artery disease): Plan: Patient with CAD s/p CABG x 4V in 1999 at [facility] [place]. Denies chest pain. Troponin within normal range at 6.9 -No signs of ACS -Magnesium repletion -Continue ASA, Atorvastatin, Metoprolol and Losartan (5) Hypertension: Plan: Blood pressure mildly elevated -Continue Amlodipine, Metoprolol, Losartan, Spironolactone -Monitor (6) Gastroesophageal reflux disease due to diaphragmatic hernia: Plan: Chronic. Stable -will hold PPI in setting of hypomagnesemia Plan On presentation patient had CT scan of head, cervical spine, chest,abdomen pelvis, plain chest x-ray and plain pelvic x-ray no evidence of trauma. Concern that his falls are just his sequela of his normal pressure hydrocephalus which is yet to be treated. We will prefer to have PT OT evaluation prior to him going home so he does not fall and have an injury Admission and Anticipated Discharge Date Admission Date: October 23, 2022 Subjective Pt recalls being weak and falling at home, typically urinally incontinent, no other focal issues. family is at bedside and updated, they are concerned about hallucinations, will check urine culture Physical Exam Physical Exam: awake oriented and conversant cardiac exam is regular lungs are clear abd is soft and non tender extremities are with trace edema neurologically is non focal Results & Data Results & Data Vital Signs (Past 12 Hours) Vital Signs Temp Pulse Pulse Resp BP Pulse Ox O2 Del Method 10/25/22 16:03 98.8 F 88 20 115/76 91 Room Air 10/25/22 15:23 87 10/25/22 11:53 98.1 F 80 18 120/77 90 Room Air 10/25/22 07:51 98.2 F 99 H 20 137/72 90 Room Air 10/25/22 07:21 88 Laboratory Results reviewed chemistry reviewed mag PG Care Time/CCT Total # of Minutes Spent Total Time Spent with Patient: Total time spent is greater than 50% in coordination of care (as documented) at patient's floor/unit and/or counseling patient: Coding Level of Care Code 06912 SUB INP/OBS CARE 2/35MIN Diagnoses Hypomagnesemia E83.42 Normal pressure hydrocephalus G91.2 Uncontrolled type 2 diabetes mellitus with insulin therapy E11.65; Z79.4 CAD (coronary artery disease) I25.10 Hypertension I10 Gastroesophageal reflux disease due to diaphragmatic hernia K21.9; K44.9
[2022-10-25] MEDS: MAGNESIUM OXIDE 400 MG TAB PO SCH (20:11)
[2022-10-25] MEDS: ATORVASTATIN 40 MG TAB PO SCH (20:12)
[2022-10-26] MEDS: ENOXAPARIN INJ 40 MG/0.4 ML SYR SQ SCH (06:17)
[2022-10-26] MEDS: ACETAMINOPHEN 325 MG TAB PO PRN (08:33)
[2022-10-26] MEDS: METOPROLOL TARTRATE 25 MG TAB PO SCH (08:34)
[2022-10-26] MEDS: LOSARTAN POTASSIUM 25 MG TAB PO SCH (08:34)
[2022-10-26] MEDS: MAGNESIUM OXIDE 400 MG TAB PO SCH (08:34)
[2022-10-26] MEDS: SPIRONOLACTONE 25 MG TAB PO SCH (08:34)
[2022-10-26] MEDS: amLODIPine BESYLATE 5 MG TAB PO SCH (08:34)
[2022-10-26] MEDS: LANTUS PER UNIT CHARGE SQ SCH (09:40)
[2022-10-26] MEDS: INSULIN ASPART PER UNIT CHARGE SC SCH ×2 (09:49→12:59)
[2022-10-26 10:31] LABS: Creatinine Clr Calc Pharmacy 70.3 ml/min; Est GFR (Non-African American) 65.6 ml/min
[2022-10-26 13:07] LABS: Appearance Urine Clear (Clear); Bilirubin Urine Negative (Negative); Blood Urine Negative (Negative); Color Urine Yellow; Glucose Urine UA Negative (Negative); Ketones Urine 1+ (Negative); Leukocyte Esterase Urine Negative (Negative); Nitrite Urine Negative (Negative); Protein Urine Negative (Negative); Specific Gravity Urine 1.016 (1.000-1.030); Urobilinogen Urine Negative (Negative); pH Urine 6.5 (4.5-7.5)
--- NOTE | 2022-10-26 16:21 | Discharge Summary ---
Date of Service October 26, 2022 Admission HPI Per Admitting Provider Simone Corona is a 77yo male with history of DM, CAD s/p CABG, NAFLD presenting after a fall at home. History obtained from patient and at bedside. Patient reports he has been having worsening balance and increased frequency of falls for the last two years. He does have a diagnosis of normal pressure hydrocephalus for which he follows with Neurosurgery at [facility] in [place]. He is scheduled for his next Neurosurgery followup in November with shunt placement tentatively planned for sometime in December or earlier if possible. Patient got up to use the bathroom on 10/21/22. He doesn't clearly remember falling but his found him down in the bathroom around 08:30. He was having some difficulty getting up due to weakness. Patient denies chest pain, cough, SOB. He does have some mid-abdominal pain that has been ongoing for several months. He has urinary incontinence as well as episodes of confusion that have been ongoing x 2 years. In the ER patient afebrile, HD stable, NAD. No additional complaints ER Course: Magnesium 2gm Principal Diagnosis normal pressure hydrocephalus Discharge Exam awake oriented and conversant cardiac exam is regular lungs are clear abd is soft and non tender extremities are with trace edema neurologically is non focal Discharge Data Allergies Allergy/AdvReac Type Severity Reaction Status Date / Time morphine AdvReac Unknown nasty Verified 06/09/22 10:43 Consultations 10/23/22 20:52 ED Decision to Admit Stat Ordered Studies 10/23/22 18:58 CT abd pelvis IV con only Stat 10/23/22 18:59 CT cervical spine wo con Stat CT head/brain wo con Stat 10/23/22 19:09 CT chest diagnostic w con Stat Hospital Course (1) Hypomagnesemia: 77yo male with multiple medical comorbidities presenting from home after a fall. No injuries sustained. Patient found to have hypomagnesemia with Mg=0.9. Potassium and calcium WNL. Patient has received 2gm of Magnesium sulfate magnesium is low normal repleted orally will discharge with oral magenesium, will recommend PCP rechecks level in 1-2 weeks. (2) Normal pressure hydrocephalus: Patient with normal pressure hydrocephalus. He follow with Neurosurgery at [facility] and is to have a shunt placed in December or sooner if able. He does endorse increased imbalance and falls as well as urinary incontinence and periods of confusion. CT of the head obtained with ventricular enlargement and some cortical cerebral atrophy which is similar to prior study. No neurological deficits. Left PT OT evaluation -Followup with Neurosurgery outpatient as directed, followup appointment now in October (3) Uncontrolled type 2 diabetes mellitus with insulin therapy: Patient is compliant with home medications - Trulicity, glargine U-300 and Metformin. Last HgbA1C 6 on 11/30/21 (4) CAD (coronary artery disease): Patient with [place] 4[place] [facility] [place] Denies chest pain. Troponin within normal range at 6.9 -No signs of ACS -Magnesium repletion -Continue ASA, Atorvastatin, Metoprolol and Losartan (5) Hypertension: Blood pressure mildly elevated -Continue Amlodipine, Metoprolol, Losartan, Spironolactone (6) Gastroesophageal reflux disease due to diaphragmatic hernia: Chronic. Stable held PPI in setting of hypomagnesemia Plan On presentation patient had CT scan of head, cervical spine, chest,abdomen pelvis, plain chest x-ray and plain pelvic x-ray no evidence of trauma. Concern that his falls are just his sequela of his normal pressure hydrocephalus which is yet to be treated. Family agreeable with everin patient home Total Time Total Time Spent Total Time Spent (In Minutes): 32 Discharge Plan Discharge Items Patient Disposition: Home - Self-Care Reason For Visit: HYPOMAGNESEMIA Discharge Diagnosis: low magnesium Activity: Resume your previous activity Non-emergency contact: Primary Care Provider Call non-emergency contact if: you have any medication questions Follow-up/Referrals: Daniel Rondon MD [Primary Care Provider] - 11/02/22 2:00 pm Yenifer Lr PA-C [Outside Practitioners] - 11/09/22 1:25 pm (Neurosurgery You have also been placed on a cancellation list You may call daily (recommended in the morning) for any late cancellation appointments ) Diet: Carb Consistent or DM2 Addtl Attending Provider Instructions: Followup as noted above. Recommend checking Magnesium at followup appointment with Dr. Rondon Pending Studies at Discharge: No Stand-Alone Forms: [employer], Smoking Cessation Medications and DC Order Prescriptions: New magnesium oxide 400 mg (241.3 mg magnesium) Tablet 400 mg PO BID Qty: 60 0RF Continued (DME) OneTouch Ultra Blue Test Strip Strip See Rx Instructions .ROUTE .MEDSUPPLY Qty: 200 3RF Rx Instructions: test 2 times daily omeprazole 20 mg capsule,delayed release(DR/EC) 20 mg PO DAILY Qty: 30 5RF amlodipine 10 mg tablet 10 mg PO DAILY Qty: 90 3RF aspirin 81 mg tablet,delayed release (DR/EC) 162 mg PO QAM Qty: 180 3RF Hold Instructions: hold until after neurosurgery dulaglutide 3 mg/0.5 mL pen injector 3 mg subcut Q7D Qty: 2 5RF metformin 1,000 mg tablet 1,000 mg PO BID Qty: 180 3RF metoprolol tartrate 25 mg tablet 25 mg PO BID Qty: 180 3RF (DME) pen needle, diabetic [BD Ultra-Fine Aimee Pen Needle] 32 gauge x 5/32" needle See Rx Instructions .ROUTE .MEDSUPPLY Qty: 90 3RF Rx Instructions: use with toujeo daily spironolactone 25 mg tablet 25 mg PO DAILY Qty: 90 3RF atorvastatin 80 mg tablet 80 mg PO QPM Qty: 90 3RF losartan 25 mg tablet 12.5 mg PO DAILY Qty: 90 3RF solifenacin [Vesicare] 10 mg tablet 10 mg PO DAILY Qty: 30 5RF lorazepam 0.5 mg tablet 0.5 mg PO .COMPLEX Qty: 2 0RF Rx Instructions: 0.5 mg orally 30 minutes before MRI; Toujeo Max U-300 SoloStar 300 unit/mL (3 mL) insulin pen 30 unit SQ HS Qty: 12 1RF cholecalciferol (vitamin D3) 125 mcg (5,000 unit) capsule 125 mcg PO DAILY mecobalamin (vitamin B12) 1,000 mcg tablet,chewable 1,000 mcg PO DAILY Discharge Orders: Discharge Order (Routine); Ordered 10/26/22 Ordered By: Yuri Hightower/Other Patient Handouts: Managing Type 2 Diabetes Admission Data Admit Date/Time: 10/23/22 21:40 Attending Provider: Yuri Perez Admit Provider: Tania Wylie Primary Care Provider: Daniel Rondon Other Providers: Tania Wylie Other Interventions: Discharge Summary Assessment (RN) Last Done: 10/26/22 16:58 Coding Level of Care Code 66833 INP/OBS DISCH >30 MIN Diagnoses Hypomagnesemia E83.42 Normal pressure hydrocephalus G91.2 Uncontrolled type 2 diabetes mellitus with insulin therapy E11.65; Z79.4 CAD (coronary artery disease) I25.10 Hypertension I10 Gastroesophageal reflux disease due to diaphragmatic hernia K21.9; K44.9
--- NOTE | 2022-10-30 13:32 | Coding Query ---
CODING QUERY FOR UNCONTROLLED DIABETES To promote full compliance with coding requirements relating to patient care, provider participation is requested in all cases of window glazier uncertainty. Please assist us with the question(s) below: Coding Question: The term uncontrolled Diabetes was used throughout the record. To be able to code this diagnosis properly, could you please clarify the diagnosis below: ( ) Uncontrolled Diabetes meaning hypoglycemia ( x ) Uncontrolled Diabetes meaning hyperglycemia ( ) Other (please specify) Principal Diagnosis: "that condition established after study, to be chiefly responsible for occasioning the admission of the patient to the hospital for care." Co-Existing Principal Diagnosis: "when two or more diagnoses equally meet the criteria for principal diagnosis as determined by the circumstances of admission, diagnostic work up, and/or therapy provided, and the Alphabetic Index, Tabular List, or another coding guideline does not provide sequencing direction, any one of the diagnoses may be sequenced first." "When the physician has documented what appears to be a current diagnosis in the body of the record, but has not included the diagnosis in the final diagnostic statement, the physician should be asked whether the diagnosis should be added." (Source Coding Clinic 2 QTR90. p3-4) BERNIE
== END 2022-10-26 17:20 | disposition home or self-care (01) | DRG 641 ==
LOC: ED 18:24 → EDINP 21:40 → SUATTDRO 21:40 → 2W 23:26